=== PATIENT | male | born 1985 | race Caucasian/White ===

== ENCOUNTER 2017-08-06 21:37 | Emergency (ER) | payer OTHER, SELFPAY ==
[2017-08-06] MEDS ORDERED: HYDROcodone/Acetaminophen 10/325 mg Tablet ONE (21:54)
--- NOTE | 2017-08-06 22:02 | RAD ---
RIGHT ANKLE THREE VIEW 08/06/17 HISTORY: Stepped off a stair and twisted right ankle. COMPARISON: Left foot radiograph 2016. FINDINGS: There is extensive circumferential soft tissue edema of the ankle. Ankle mortise is congruent. No ac jasmina fracture. 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 IMPRESSION: No acute fracture or malalignment of the ankle. POS: [facility]
== END 2017-08-06 22:20 | disposition home or self-care (01) ==
LOC: ERS 21:37
DX: S93.401A Sprain of unspecified ligament of right ankle, initial encounter (principal); E66.9 Obesity, unspecified; F17.210 Nicotine dependence, cigarettes, uncomplicated; I45.6 Pre-excitation syndrome; I49.9 Cardiac arrhythmia, unspecified; X50.1XXA Overexertion from prolonged static or awkward postures, initial encounter
CPT/HCPCS: 99406

== ENCOUNTER 2017-12-18 03:47 | Emergency (ER) | payer OTHER, SELFPAY ==
[2017-12-18 04:26] LABS: #Basophils 0.1 thou/uL (0.0-0.2); #Eosinphils 0.4 thou/uL (0.0-0.7); #Lymphocytes 2.2 thou/uL (1.20-3.40); #Monocytes 0.5 thou/uL (0.11-0.59); #Neutrophils 4.4 thou/uL (1.40-6.50); %Basophils 0.7 % (0.0-1.0); %Eosinophils 5.1 % (0.0-10.0); %Lymphocytes 29.1 % (21.0-51.0); %Monocytes 6.1 % (0.0-10.0); Hemoglobin 16.3 g/dL (14.0-18.0); Mean Corpuscular HGB CONC 34.3 g/dL (32.0-36.0); Mean Corpuscular Hemoglobin 29.5 pg (27.0-31.0); Mean Platelet Volume 7.6 fL (7.4-10.4); Platelet Count 209 thou/uL (130-400); Red Blood Cell (RBC) Count 5.53 mill/uL (4.70-6.10); White Blood Cell (WBC) Count 7.5 thou/uL (4.8-10.8)
[2017-12-18 04:28] LABS: Bilirubin Negative (Negative); Blood, Urine Negative (Negative); Clarity CLEAR (Clear); Glucose, Urine (Dipstick) Negative (Negative); Leukocyte Negative (Negative); Nitrite Negative (Negative); Protein, Urine (Dipstick) Trace mg/dL (Neg-Trace); Specific Gravity, Urine 1.028 (1.002-1.036); Urobilinogen 0.2 mg/dL (0.2-1.0)
[2017-12-18 04:54] LABS: ALT (SGPT) 19 U/L (8-55); AST (SGOT) 27 U/L (5-34); Alkaline Phosphatase 62 U/L (40-150); Anion Gap 11 mmol/L (10-20); BUN (Urea Nitrogen) 13 mg/dL (8.9-20.6); Bilirubin, Total 0.9 mg/dL (0.2-1.2); Calc. Creatinine Clearance 0 mL/min (70-130); Calcium 9.1 mg/dL (7.8-10.44); Carbon Dioxide 29 mmol/L (22-29); Chloride 105 mmol/L (98-107); Estimated GFR-MDRD 72; Globulin 2.9 g/dL (2.4-3.5); Glucose 99 mg/dL (70-105); Potassium 4.3 mmol/L (3.5-5.1); Protein, Total 6.9 g/dL (6.0-8.3); Sodium 141 mmol/L (136-145)
[2017-12-18] MEDS ORDERED: Diazepam 5 MG TAB ONE ×2 (06:47→07:10)
[2017-12-18] MEDS ORDERED: Ketorolac Tromethamine 60 MG/2 ML VIAL ONE (06:47)
== END 2017-12-18 07:51 | disposition home or self-care (01) ==
LOC: ERS 03:47
DX: M62.830 Muscle spasm of back (principal); E66.9 Obesity, unspecified; F17.210 Nicotine dependence, cigarettes, uncomplicated; Z71.6 Tobacco abuse counseling
CPT/HCPCS: 36415; 80053; 81003; 85025; 96372; 99406; J1885

== ENCOUNTER 2018-02-26 02:28 | Observation (INO) | payer OTHER, SELFPAY ==
[2018-02-26 03:41] LABS: #Basophils 0.1 thou/uL (0.0-0.2); #Eosinphils 0.3 thou/uL (0.0-0.7); #Lymphocytes 1.8 thou/uL (1.20-3.40); #Monocytes 0.5 thou/uL (0.11-0.59); #Neutrophils 4.2 thou/uL (1.40-6.50); %Basophils 1.2 % (0.0-1.0); %Lymphocytes 25.9 % (21.0-51.0); %Monocytes 7.3 % (0.0-10.0); %Neutrophils 60.6 % (42.0-75.0); Hemoglobin 16.2 g/dL (14.0-18.0); Mean Corpuscular HGB CONC 35.1 g/dL (32.0-36.0); Mean Corpuscular Hemoglobin 30.3 pg (27.0-31.0); Mean Corpuscular Volume 86.5 fl (80.0-94.0); Mean Platelet Volume 7.8 fL (7.4-10.4); Platelet Count 207 thou/uL (130-400); Red Blood Cell (RBC) Count 5.32 mill/uL (4.70-6.10)
[2018-02-26 03:49] LABS: ALT (SGPT) 21 U/L (8-55); AST (SGOT) 26 U/L (5-34); Albumin 3.9 g/dL (3.5-5.0); Alkaline Phosphatase 68 U/L (40-150); Anion Gap 12 mmol/L (10-20); BUN (Urea Nitrogen) 13 mg/dL (8.9-20.6); Bilirubin, Total 1.1 mg/dL (0.2-1.2); CK (CPK) 466 U/L (30-200); Calc. Creatinine Clearance 0 mL/min (70-130); Calcium 8.9 mg/dL (7.8-10.44); Carbon Dioxide 21 mmol/L (22-29); Chloride 106 mmol/L (98-107); Estimated GFR-MDRD Greater than 90; Glucose 130 mg/dL (70-105); Lipase 34 U/L (8-78); Potassium 3.7 mmol/L (3.5-5.1); Protein, Total 6.9 g/dL (6.0-8.3); Sodium 135 mmol/L (136-145)
[2018-02-26 03:52] LABS: CKMB 3.3 ng/mL (0-6.6); Troponin I Less than 0.010 ng/mL (< 0.028)
[2018-02-26] MEDS ORDERED: Nitroglycerin 2% Ointment 1 INCH/1 GM Packet ONE (04:15)
[2018-02-26] MEDS ORDERED: cloNIDine 0.1 MG TAB ONE (05:16)
[2018-02-26 05:20] LABS: Bilirubin Negative (Negative); Blood, Urine Negative (Negative); Clarity CLEAR (Clear); Glucose, Urine (Dipstick) Negative (Negative); Leukocyte Negative (Negative); Nitrite Negative (Negative); Protein, Urine (Dipstick) Trace mg/dL (Neg-Trace); Specific Gravity, Urine 1.026 (1.002-1.036); Urobilinogen 0.2 mg/dL (0.2-1.0); pH, Urine 5.5 (5.0-9.0)
[2018-02-26 05:27] LABS: Amphetamine Not Detected (NotDetected); Barbiturates Screen Not Detected (NotDetected); Benzodiazepine Screen Not Detected (NotDetected); Cocaine Metabolite Screen Not Detected (NotDetected); Medtox Control Line Valid? VALID (VALID); Medtox Reader # READER 4; Methadone Not Detected (NotDetected); Methamphetamine Not Detected (NotDetected); Opiate Screen Not Detected (NotDetected); Oxycodone Screen Not Detected (NotDetected); Phencyclidine (PCP) Not Detected (NotDetected); THC/Cannabinoid Screen Not Detected (NotDetected); Tricyclic Screen Not Detected (NotDetected)
[2018-02-26] MEDS ORDERED: Ondansetron ODT 4 MG TAB SL PRN (06:24)
[2018-02-26] MEDS ORDERED: Acetaminophen 325 MG TAB PO PRN (06:24)
[2018-02-26] MEDS ORDERED: Ondansetron HCl/PF 4 MG/2 ML Vial IVP PRN (06:24)
[2018-02-26] MEDS ORDERED: hydrALAZINE 20 MG/ML VIAL SLOW IVP PRN (06:37)
[2018-02-26 07:07] LABS: Troponin I Less than 0.010 ng/mL (< 0.028)
[2018-02-26 08:28] VITALS: BMI 60.5
--- NOTE | 2018-02-26 08:45 | RAD ---
CHEST 2 VIEWS: History Pain. COMPARISON: 08/15/14. FINDINGS: Normal cardiac silhouette. Lungs and pleural spaces are clear. No pneumothorax or osseous abnormali ties. IMPRESSION: No acute cardiopulmonary process. POS: [facility]
[2018-02-26 10:03] LABS: Troponin I Less than 0.010 ng/mL (< 0.028)
[2018-02-26 10:55] VITALS: TEMP 96.8
[2018-02-26 13:32] VITALS: BP 165/68
--- NOTE | 2018-02-26 21:08 | HP ---
DATE OF ADMISSION: 02/26/2018 PRIMARY CARE PHYSICIAN: Taya orellana. CHIEF COMPLAINT: Chest pain. HISTORY OF PRESENT ILLNESS: This is a 32-year-old male who presents to [facility] complaining of acute onset of chest pain with left arm heaviness which began approxima tely 1:30 a.m. on 02/26/2018. The patient was apparently getting ready to go to bed when he noticed symptoms and became concerned as he states his mother had a myocardial infarction at age 51. The pat ient also states he has a history of Vhliu-Zapywzmmf-Kxcjw syndrome, status post ablation remotely. The patient denies any recent trauma, injury, fever, chills or increased cough. The patient denied a ny unilateral weakness. The patient denies any personal history of coronary artery disease or prior evaluation for the condition. The patient initially states he had a dull pain and tightness in his c hest rating at 4/10. The patient had some nausea and shortness of breath. The patient attempted to lay down, but his symptoms progressed, prompting him to seek medical attention in the emergency room. The patient underwent general evaluation including EKG evaluation showing no acute EKG changes. Ch est imaging was unremarkable and troponin I was negative initially. The patient was noted, however, with elevated blood pressure of 229/137, receiving sublingual nitroglycerin, transdermal nitroglyceri n and aspirin 324 mg x1 dose. The patient also received clonidine. The patient was referred to the observation unit for evaluation. PAST MEDICAL HISTORY: 1. Morbid obesity. 2. Rbsph-Bmdstpkzp-Npipc, status post cardiac ablation. 3. Tobacco use. PAST SURGICAL HISTORY: 1. Status post tonsillectomy. 2. Status post cardiac ablation. 3. Status post bilateral tympanostomy. CURRENT MEDICATIONS: Flexeril 10 mg p.o. q.8 hours p.r.n., [id number] Tylenol. ALLERGIES: No known drug allergies. FAMILY HISTORY: Mother with myocardial infarction at age 51. SOCIAL HISTORY: The patient is accompanied by his significant other in the hospital. Works at [employer]. Smokes up to a pack of cigarettes daily. Social alcohol use. No illicit drug use. Fun ctional of all activities of daily living. REVIEW OF SYSTEMS: The following complete review of systems was negative, unless otherwise mentioned in the HPI or below: Constitutional: Weight loss or gain, ability to conduct usual activities. Sk in: Rash, itching. Eyes: Double vision, pain. ENT/Mouth: Nose bleeding, neck stiffness, pain, te nderness. Cardiovascular: Palpitations, dyspnea on exertion, orthopnea. Respiratory: Shortness of breath, wheezing, cough, hemoptysis, fever or night sweats. Gastrointestinal: Poor appetite, abdom inal pain, heartburn, nausea, vomiting, constipation, or diarrhea. Genitourinary: Urgency, frequenc y, dysuria, nocturia. Musculoskeletal: Pain, swelling. Neurologic/Psychiatric: Anxiety, depressio n. Allergy/Immunologic: Skin rash, bleeding tendency. PHYSICAL EXAMINATION: VITAL SIGNS: Currently, blood pressure 177/98, pulse 66, respiratory rate 18, temperature 96.8 degre es Fahrenheit, O2 saturation 96% on room air. GENERAL APPEARANCE: This is a 32-year-old male, alert and oriented x3, pleasant, conversan t, in no acute distress. HEENT: Pupils are equal, round, and reactive to light and accommodation. Extraocular muscles are in tact. No scleral icterus, no conjunctival injection. Nares patent. OP is clear. NECK: Supple, no cervical adenopathy, no thyromegaly, no carotid bruits, no JVD appreciated. Cervic al spine with full active and passive range of motion. No meningeal signs appreciated. CHEST: Lungs are clear to auscultation bilaterally. Diminished breath sounds in the bases. CARDIOVASCULAR: S1, S2 with distant heart sounds. No murmur, rub or gallop. ABDOMEN: Obese, landmarks difficult to palpate due to patient's body habitus. No rebound or guardin g appreciated. EXTREMITIES: Warm and dry with fair turgor. No clubbing, cyanosis or asymmetric edema appreciated. Pulses palpable distally at the dorsalis pedis, posterior tibial, and popliteal arteries bilaterally . Capillary refill less than 2 seconds. NEUROLOGIC: Cranial nerves II-XII are grossly intact. No focal or lateralizing signs appreciated. PERTINENT LABORATORY AND X-RAY FINDINGS: Basic metabolic profile within normal limits. Total CK 466 , troponin I negative x3. Albumin 3.9, lipase 34. CBC within normal limits. Urinalysis negative. Urine drug screen on 02/26/2018 negative. Portable chest x-ray dated 02/26/2018 showed no acute card iopulmonary process. EKG dated 02/26/2018 by my interpretation shows sinus mechanism with heart rate s in the 70s. Normal R-wave progression noted in precordial leads, left axis deviation. No acute ST -T wave changes appreciated. ASSESSMENT AND PLAN: 1. Hypertensive urgency. The patient treated initially with transdermal and sublingual nitroglyceri n with overall improvement in blood pressure trend. We will initiate Norvasc 5 mg p.o. daily. The p atient likely will need additional titration of antihypertensive regimen on an ongoing basis after adelfo ngo. 2. Morbid obesity. 3. Heart healthy diet. Encourage weight loss. May need dietitian consult on an outpatient basis. 4. Tobacco abuse. We will offer smoking cessation resources prior to discharge. 5. Chest pain secondary to #1, resolved. Suspect underlying chest pain symptomatology is due to hyp ertensive urgency. The patient may benefit from outpatient cardiac stress testing. 6. Prophylaxis. Smoking cessation resources. Sequential compression devices. 7. Code status is FULL. Surrogate medical decision maker is patient's significant other.
--- NOTE | 2018-02-27 00:47 | DIS ---
DATE OF ADMISSION: 02/26/2018 DISCHARGE DIAGNOSES: 1. Hypertensive urgency, resolved. 2. Morbid obesity. 3. Tobacco abuse. 4. Chest pain secondary to #1, resolved. CONSULTATIONS: None. PERTINENT LABORATORY AND X-RAY FINDINGS: Complete metabolic profile within normal limits. Troponin I negative x3. CBC within normal limits. Urinalysis negative. Urine drug screen dated 02/26/2018 n egative. Portable chest x-ray dated 02/26/2018 negative. HOSPITAL COURSE: Patient was observed after presenting with the chest pain and hypertensive urgency. Patient was treated with transdermal and oral nitroglycerin as well as clonidine. Patient's overal l blood pressure trend improved with supportive measures. Patient was initiated on Norvasc 5 mg melissa y with plans to continue titrating and monitoring on an outpatient basis after establishing with prim [place] care provider. Patient was cautioned and counseled regarding smoking cessation and need for weig ht loss after discharge. Patient may benefit from a cardiac stress testing in the near future after stabilization of hypertension. Overall, patient remained clinically stable throughout the hospital c ourse. I have examined the patient and discussed findings and discharge planning, at which point, renea pierce verbalizes understanding and agreement. Patient ready for discharge 02/26/2018. DISCHARGE MEDICATIONS: Norvasc 5 mg 1 tablet p.o. daily. FOLLOWUP: Patient may followup with the primary care provider of his choice within 7 days of dischar ge. CONDITION ON DISCHARGE: Stable. ACTIVITY: Ad allie. DIET: Heart healthy. CODE STATUS: FULL. DISPOSITION: Home, 02/26/2018.
--- NOTE | 2018-02-27 14:15 | EKG ---
Test Reason : Blood Pressure : / mmHG Vent. Rate : 074 BPM Atrial Rate : 074 BPM P-R Int : 176 ms QRS Dur : 104 ms QT Int : 434 ms P-R-T Axes : 042 -14 024 degrees QTc Int : 481 ms Normal sinus rhythm Possible Left atrial enlargement Left ventricular hypertrophy Prolonged QT Abnormal ECG Confirmed by ANA GRECO ([id number]), editor newspaper JAIDA DELGADILLO ([id number]) on 02/27/2018 2:15:35 PM Referred By: Confirmed By:ANA GRECO
== END 2018-02-26 15:34 | disposition home or self-care (01) ==
LOC: ERS 02:28 → 2SW 06:00
PROVIDERS: ADMIT Internal Medicine; ATTEND Internal Medicine
DX: I16.0 Hypertensive urgency (principal); E66.01 Morbid (severe) obesity due to excess calories; F17.210 Nicotine dependence, cigarettes, uncomplicated; Z79.899 Other long term (current) drug therapy; Z68.44 Body mass index [BMI] 60.0-69.9, adult
CPT/HCPCS: 36415; 71046; 80053; 80306; 81003; 82553; 83690; 84484; 85025; 93005; 96374; 99406; A4216; G0378; J0360

== ENCOUNTER 2018-09-26 17:40 | Emergency (ER) | payer OTHER ==
[2018-09-26 18:36] LABS: Anion Gap 14 mmol/L (10-20); BUN (Urea Nitrogen) 9 mg/dL (8.9-20.6); Calc. Creatinine Clearance 0 mL/min (70-130); Calcium 8.8 mg/dL (7.8-10.44); Carbon Dioxide 22 mmol/L (22-29); Chloride 107 mmol/L (98-107); Estimated GFR-MDRD 87; Glucose 126 mg/dL (70-105); Potassium 3.7 mmol/L (3.5-5.1); Sodium 139 mmol/L (136-145)
[2018-09-26] MEDS ORDERED: diphenhydrAMINE 50 MG/ML VIAL ONE (18:54)
[2018-09-26] MEDS ORDERED: Acetaminophen 500 MG TAB ONE (18:54)
[2018-09-26] MEDS ORDERED: Metoclopramide HCl 10 MG/2 ML VIAL ONE (18:54)
== END 2018-09-26 20:00 | disposition home or self-care (01) ==
LOC: ERS 17:40
DX: I10 Essential (primary) hypertension (principal); R51 Headache; I45.6 Pre-excitation syndrome; E66.9 Obesity, unspecified; F17.210 Nicotine dependence, cigarettes, uncomplicated; I49.9 Cardiac arrhythmia, unspecified; Z79.899 Other long term (current) drug therapy
CPT/HCPCS: 36415; 80048; 96365; 96375; J1200; J2765

== ENCOUNTER 2018-11-23 13:42 | Emergency (ER) | payer OTHER, SELFPAY ==
[2018-11-23 14:58] LABS: #Eosinphils 0.1 thou/uL (0.0-0.7); #Monocytes 0.4 thou/uL (0.11-0.59); #Neutrophils 5.4 thou/uL (1.40-6.50); %Basophils 0.4 % (0.0-1.0); %Eosinophils 0.8 % (0.0-10.0); %Monocytes 5.4 % (0.0-10.0); %Neutrophils 78.4 % (42.0-75.0); Hemoglobin 17.7 g/dL (14.0-18.0); Mean Corpuscular HGB CONC 33.4 g/dL (32.0-36.0); Mean Corpuscular Hemoglobin 29.9 pg (27.0-31.0); Mean Corpuscular Volume 89.6 fL (78.0-98.0); Platelet Count 235 thou/uL (130-400); RBC Distribution Width 11.8 % (11.5-14.5); Red Blood Cell (RBC) Count 5.93 mill/uL (4.70-6.10); White Blood Cell (WBC) Count 6.9 thou/uL (4.8-10.8)
--- NOTE | 2018-11-23 15:04 | RAD ---
SINGLE VIEW CHEST: Date: 11/23/18 COMPARISON: 08/15/14. HISTORY: Syncope and dizziness. FINDINGS: Single view of the chest shows a normal sized cardiomediastinal silhouette. There is no evidence of c onsolidation, mass, or pleural effusion. The bones are unremarkable. IMPRESSION: No evidence of acute cardiopulmonary disease. POS: [facility]
[2018-11-23 15:21] LABS: ALT (SGPT) 37 U/L (8-55); AST (SGOT) 57 U/L (5-34); Albumin 4.3 g/dL (3.5-5.0); Alkaline Phosphatase 61 U/L (40-150); Anion Gap 15 mmol/L (10-20); BUN (Urea Nitrogen) 10 mg/dL (8.9-20.6); Bilirubin, Total 1.8 mg/dL (0.2-1.2); Calc. Creatinine Clearance 0 mL/min (70-130); Calcium 9.6 mg/dL (7.8-10.44); Carbon Dioxide 24 mmol/L (22-29); Chloride 104 mmol/L (98-107); Estimated GFR-MDRD 81; Globulin 3.2 g/dL (2.4-3.5); Glucose 93 mg/dL (70-105); Magnesium 2.2 mg/dL (1.6-2.6); Potassium 4.3 mmol/L (3.5-5.1); Protein, Total 7.5 g/dL (6.0-8.3); Sodium 139 mmol/L (136-145)
== END 2018-11-23 16:11 | disposition home or self-care (01) ==
LOC: ERS 13:42
DX: R55 Syncope and collapse (principal); I10 Essential (primary) hypertension; I45.6 Pre-excitation syndrome; I49.9 Cardiac arrhythmia, unspecified; F17.210 Nicotine dependence, cigarettes, uncomplicated; Z79.899 Other long term (current) drug therapy
CPT/HCPCS: 71045; 80053; 83735; 84443; 84484; 85025; 85379; 93005

== ENCOUNTER 2020-03-11 00:42 | Emergency (ER) | payer OTHER, SELFPAY | END 2020-03-11 02:02 | disposition home or self-care (01) | LOC: ERS 00:42 | DX: L03.115 Cellulitis of right lower limb (principal); I10 Essential (primary) hypertension; E66.9 Obesity, unspecified; F17.210 Nicotine dependence, cigarettes, uncomplicated; I49.9 Cardiac arrhythmia, unspecified; I45.6 Pre-excitation syndrome; Z79.899 Other long term (current) drug therapy | CPT/HCPCS: 99283 ==

== ENCOUNTER 2020-11-21 16:22 | Inpatient (IN) | payer SELFPAY ==
[2020-11-21] MEDS ORDERED: Acetaminophen 500 MG TAB ONE (16:53)
[2020-11-21] MEDS ORDERED: Cefepime 2 GM VIAL ONE (17:05)
[2020-11-21 17:16] LABS: Hemoglobin 15.9 g/dL (14.0-18.0); Mean Corpuscular HGB CONC 34.1 g/dL (32.0-36.0); Mean Corpuscular Hemoglobin 29.6 pg (27.0-31.0); Mean Corpuscular Volume 86.7 fL (78.0-98.0); Mean Platelet Volume 8.3 fL (7.4-10.4); Platelet Count 169 thou/uL (130-400); RBC Distribution Width 12.2 % (11.5-14.5); Red Blood Cell (RBC) Count 5.36 mill/uL (4.70-6.10); White Blood Cell (WBC) Count 16.2 thou/uL (4.8-10.8)
[2020-11-21] MEDS ORDERED: hydrALAZINE 20 MG/ML VIAL ONE (17:26)
[2020-11-21 17:35] LABS: Band 13 % (5-11); Lymphocytes 4 % (21-51); MDiff Complete? YES; Monocytes 3 % (0-10); Neutrophil 79 % (42-75); Platelet Morphology Comment Appears Adequate; RBC Morphology Normal; Reactive Lymphocytes 1 % (0-10)
[2020-11-21 17:45] LABS: Bacteria/HPF None Seen HPF (None Seen); Bilirubin Negative (Negative); Blood, Urine 2+ (Negative); Clarity Clear (Clear); Glucose, Urine (Dipstick) Normal (Negative); Ketone, Urine Negative (Negative); Leukocyte 25 Leu/uL (Negative); Nitrite Negative (Negative); Protein, Urine (Dipstick) 100 mg/dL (Neg-Trace); Specific Gravity, Urine 1.023 (1.002-1.036); Squamous Epithelial None Seen HPF (0-3)
[2020-11-21 17:46] LABS: ALT (SGPT) 23 U/L (8-55); AST (SGOT) 29 U/L (5-34); Albumin 3.8 g/dL (3.5-5.0); Alkaline Phosphatase 63 U/L (40-110); Anion Gap 12 mmol/L (10-20); BUN (Urea Nitrogen) 11 mg/dL (8.9-20.6); Bilirubin, Total 1.9 mg/dL (0.2-1.2); Calc. Creatinine Clearance 220 mL/min (70-130); Calcium 8.6 mg/dL (7.8-10.44); Carbon Dioxide 24 mmol/L (22-29); Chloride 102 mmol/L (98-107); Globulin 3.3 g/dL (2.4-3.5); Glucose 111 mg/dL (70-105); Potassium 3.7 mmol/L (3.5-5.1); Protein, Total 7.1 g/dL (6.0-8.3); Sodium 134 mmol/L (136-145)
[2020-11-21] MEDS ORDERED: Acetaminophen 325 MG TAB PO PRN (20:26)
--- NOTE | 2020-11-21 20:36 | PDOC.HHP ---
Hospitalist HPI Left leg pain History of Present Illness: This is a 35-year-old male patient with a history of morbid obesity, WPW status post ablation, and hypertension who presented for days history of swelling and redness of his left leg. He notes that he has had cellulitis of his left leg several times and it felt the same way. With worsening pain and fever he presented to the ED for further evaluation. He denied any associated nausea anorexia vomiting diarrhea dysuria or frequency. At presentation blood pressure was 225/117, pulse 104, temperature 98.6 and saturating 98% on room air. His labs showed leukocytosis of 16.2, sodium was 134 lactate 1.79 bilirubin 1.9. He was started on vancomycin cefepime and received 1 L normal saline. Got 1 g of Tylenol as well. Hospitalist team was then called for admission. Allergies/Adverse Reactions: Allergy/AdvReac Type Severity Reaction Status Date / Time No Known Allergies Allergy Verified 12/22/19 23:01 Home Medications: Medication Instructions Recorded Confirmed Type Amlodipine [Norvasc] 5 mg PO DAILY #30 tab 02/26/18 Rx Past History: PMHx: Cellulitis, WPW, hypertension PSHx: None of significance FHx: None of significance Social: No smoking history, occasional alcohol use. No illicit drug use. Hospitalist HPI ROS Constitutional: reports: malaise. denies: fever, chills, sweats, weakness Cardiovascular: denies: chest pain, palpitations, orthopnea, paroxysmal noc. dyspnea Gastrointestinal: denies: nausea, vomiting, abdominal pain, diarrhea, constipation Genitourinary: denies: dysuria, frequency, incontinence, hematuria Neurological: denies: numbness, incoordination, change in speech All other systems reviewed; all pertinent +/- noted in HPI/Subj Hospitalist Exam Vitals: Weight Weight 425 lb 0.114 oz General Appearance: awake alert General - other findings: Morbidly obese, in no acute distress Eye: PERRL, anicteric sclera ENT: normocephalic atraumatic Neck: supple Heart: RRR, no murmur, no gallops, no rubs, normal peripheral pulses Respiratory: CTAB, no wheezes, no rales, no ronchi, normal chest expansion Gastrointestinal: soft, non-tender, non-distended, normal bowel sounds, no palpable masses, no rigidity Extremities: no cyanosis, no clubbing, no edema Extremities - other findings: Swelling and extensive erythema circumferentially of left leg. Neurological: cranial nerve grossly intact, no weakness, no focal deficits Hospitalist Results Result Diagrams: 11/21/20 16:58 11/21/20 16:58 Lab results: Laboratory Last Values WBC 16.2 thou/uL (4.8-10.8) H 11/21/20 16:58 RBC 5.36 mill/uL (4.70-6.10) 11/21/20 16:58 Hgb 15.9 g/dL (14.0-18.0) 11/21/20 16:58 Hct 46.4 % (42.0-52.0) 11/21/20 16:58 MCV 86.7 fL (78.0-98.0) 11/21/20 16:58 MCH 29.6 pg (27.0-31.0) 11/21/20 16:58 MCHC 34.1 g/dL (32.0-36.0) 11/21/20 16:58 RDW 12.2 % (11.5-14.5) 11/21/20 16:58 Plt Count 169 thou/uL (130-400) 11/21/20 16:58 MPV 8.3 fL (7.4-10.4) 11/21/20 16:58 Neutrophils % (Manual) 79 % (42-75) H 11/21/20 16:58 Band Neuts % (Manual) 13 % (5-11) H 11/21/20 16:58 Lymphocytes % (Manual) 4 % (21-51) L 11/21/20 16:58 Reactive Lymphs % 1 % (0-10) 11/21/20 16:58 Monocytes % (Manual) 3 % (0-10) 11/21/20 16:58 Lymphocytes # Not Reportable 11/21/20 16:58 Plt Morphology Comment Appears Adequate 11/21/20 16:58 RBC Morph Comment Normal 11/21/20 16:58 Sodium 134 mmol/L (136-145) L 11/21/20 16:58 Potassium 3.7 mmol/L (3.5-5.1) 11/21/20 16:58 Chloride 102 mmol/L (98-107) 11/21/20 16:58 Carbon Dioxide 24 mmol/L (22-29) 11/21/20 16:58 Anion Gap 12 mmol/L (10-20) 11/21/20 16:58 BUN 11 mg/dL (8.9-20.6) 11/21/20 16:58 Creatinine 1.29 mg/dL (0.7-1.3) 11/21/20 16:58 Estimated GFR (MDRD) 64 11/21/20 16:58 Glucose 111 mg/dL (70-105) H 11/21/20 16:58 Lactic Acid 1.7 mmol/L (0.5-2.2) 11/21/20 16:58 Calcium 8.6 mg/dL (7.8-10.44) 11/21/20 16:58 Total Bilirubin 1.9 mg/dL (0.2-1.2) H 11/21/20 16:58 AST 29 U/L (5-34) 11/21/20 16:58 ALT 23 U/L (8-55) 11/21/20 16:58 Alkaline Phosphatase 63 U/L (40-110) 11/21/20 16:58 Serum Total Protein 7.1 g/dL (6.0-8.3) 11/21/20 16:58 Albumin 3.8 g/dL (3.5-5.0) 11/21/20 16:58 Globulin 3.3 g/dL (2.4-3.5) 11/21/20 16:58 Albumin/Globulin Ratio 1.2 g/dL (1.2-2.2) 11/21/20 16:58 Urine Color Yellow (Yellow) 11/21/20 17:19 Urine Clarity Clear (Clear) 11/21/20 17:19 Urine pH 6.0 (5.0-9.0) 11/21/20 17:19 Ur Specific [place] 1.023 (1.002-1.036) 11/21/20 17:19 Urine Protein 100 mg/dL (Neg-Trace) A 11/21/20 17:19 Urine Glucose (UA) Normal mg/dL (Negative) 11/21/20 17:19 Urine Ketones Negative mg/dL (Negative) 11/21/20 17:19 Urine Blood 2+ (Negative) A 11/21/20 17:19 Urine Nitrite Negative (Negative) 11/21/20 17:19 Urine Bilirubin Negative (Negative) 11/21/20 17:19 Urine Urobilinogen 2.0 mg/dL (Less than 2) A 11/21/20 17:19 Ur Leukocyte Esterase 25 Jil/uL (Negative) A 11/21/20 17:19 Urine RBC 11-20 HPF (0-3) A 11/21/20 17:19 Urine WBC 4-6 HPF (0-3) A 11/21/20 17:19 Ur Squamous Epith Cells None Seen HPF (0-3) 11/21/20 17:19 Urine Bacteria None Seen HPF (None Seen) 11/21/20 17:19 Hospitalist H&P A/P Plan: This is a 35-year-old male patient with a history of hypertension and cellulitis with morbid obesity presenting with recurrent cellulitis of his left lower leg. Left lower leg cellulitis This is apparently recurrent This is nonpurulent cellulitis Received vancomycin and cefepime Continue antibiotic therapy on ceftriaxone for now Blood cultures drawnwe will follow Keep lower leg elevated Pain relief as needed. Mild sepsis Patient has leukocytosis and tachycardia resolved pain is cellulitis. Received 1 L we will continue on maintenance fluids. Follow-up cultures Lactate not elevated. Hypertensive urgency Initial systolic blood pressure above 200 We will start. Hydralazine/labetalol Resume home antihypertensive medications. Hyponatremia This is mild at 134 We will monitor BMP Morbid obesity History of WPW status post ablation VT prophylaxisLovenox CODE STATUSfull code
[2020-11-21] MEDS ORDERED: hydrALAZINE 20 MG/ML VIAL SLOW IVP PRN (23:57)
[2020-11-22] MEDS ORDERED: Amlodipine 10 MG TAB PO SCH ×2 (00:15→08:30)
[2020-11-22] MEDS ORDERED: Acetaminophen 325 MG TAB ONE (01:50)
[2020-11-22] MEDS: cefTRIAXone\\ROCEPHIN 1 GM in Sodium Chloride 0.9% 100 ML IVPB SCH ×2 (04:20→20:51)
[2020-11-22] MEDS: Sodium Chloride 0.9% 1,000 ML IV SCH ×3 (04:20→19:21)
[2020-11-22 04:45] LABS: #Lymphocytes 1.1 thou/uL (1.20-3.40); #Monocytes 0.9 thou/uL (0.11-0.59); #Neutrophils 9.2 thou/uL (1.40-6.50); %Basophils 0.3 % (0.0-1.0); %Eosinophils 0.2 % (0.0-10.0); %Lymphocytes 9.9 % (21.0-51.0); %Neutrophils 81.6 % (42.0-75.0); Mean Corpuscular HGB CONC 32.6 g/dL (32.0-36.0); Mean Corpuscular Hemoglobin 28.2 pg (27.0-31.0); Mean Corpuscular Volume 86.5 fL (78.0-98.0); Mean Platelet Volume 8.1 fL (7.4-10.4); Platelet Count 155 thou/uL (130-400); RBC Distribution Width 12.4 % (11.5-14.5); White Blood Cell (WBC) Count 11.3 thou/uL (4.8-10.8)
[2020-11-22 05:05] LABS: Anion Gap 13 mmol/L (10-20); BUN (Urea Nitrogen) 13 mg/dL (8.9-20.6); Calc. Creatinine Clearance 253 mL/min (70-130); Calcium 8.5 mg/dL (7.8-10.44); Carbon Dioxide 23 mmol/L (22-29); Chloride 103 mmol/L (98-107); Glucose 115 mg/dL (70-105); Potassium 3.5 mmol/L (3.5-5.1); Sodium 135 mmol/L (136-145)
[2020-11-22] MEDS ORDERED: hydrALAZINE 20 MG/ML VIAL SLOW IVP SCH (05:30)
[2020-11-22] MEDS: Losartan 25 MG TAB PO SCH (08:41)
[2020-11-22] MEDS: Amlodipine 10 MG TAB PO SCH (08:42)
[2020-11-22] MEDS: Enoxaparin Sodium 40 MG/0.4 ML SYRINGE SC SCH (08:42)
[2020-11-22] MEDS ORDERED: Non-Formulary Item 1 EACH (Losartan Potassium [Cozaar] 100 MG Tablet) PO SCH (09:00)
[2020-11-22 09:57] LABS: SARS-CoV-2 PCR by NAA Not Detected (NotDetected)
--- NOTE | 2020-11-22 12:48 | PDOC.HOSPP ---
- Subjective Encounter Date: 11/22/20 Encounter Time: 09:45 Subjective: Patient has no acute complaints. His blood pressure is quite elevated. Still has mild leukocytosis.Covid negative. - Objective Vital Signs & Weight: Vital Signs (12 hours) Temp Pulse Resp BP BP Pulse Ox 11/22/20 11:57 97.5 F L 90 20 189/97 H 98 11/22/20 08:29 98.8 F 90 20 206/109 H 98 11/22/20 06:00 105 H 11/22/20 04:40 182/84 H 11/22/20 03:30 98.5 F 105 H 18 180/80 H 96 Weight Weight 425 lb 0.114 oz Result Diagrams: 11/22/20 04:22 11/22/20 04:22 Hospitalist ROS - Medication Medications: Active Medications Generic Name Dose Route Start Last Admin Trade Name Freq PRN Reason Stop Dose Admin Acetaminophen 650 mg 11/21/20 20:26 11/22/20 08:32 Acetaminophen 325 Mg Tab PO 650 mg Q4H PRN Administration Headache/Fever/Mild Pain (1-3) Amlodipine Besylate 10 mg 11/22/20 09:00 11/22/20 08:42 Amlodipine 10 Mg Tab PO 10 mg DAILY MARYA Administration Enoxaparin Sodium 40 mg 11/22/20 09:00 11/22/20 08:42 Enoxaparin Sodium 40 Mg/0.4 Ml Syringe SC 40 mg 0900 MARYA Administration Ceftriaxone Sodium 1 gm/ 100 mls @ 200 mls/hr 11/21/20 21:00 11/22/20 04:20 Sodium Chloride IVPB Not Given Q24HR MARYA Sodium Chloride 1,000 mls @ 100 mls/hr 11/21/20 20:45 11/22/20 06:01 Normal Saline 0.9% IV 1,000 mls .Q10H MARYA Administration Losartan Potassium 100 mg 11/22/20 09:00 11/22/20 08:41 Losartan 25 Mg Tab PO 100 mg DAILY MARYA Administration Sodium Chloride 10 ml 11/22/20 09:00 11/22/20 08:42 Flush - Normal Saline 10 Ml Syringe IVF 10 ml Q12HR MARYA Administration Hospitalist Exam Vitals: Vital Signs (12 hours) Temp Pulse Resp BP BP Pulse Ox 11/22/20 11:57 97.5 F L 90 20 189/97 H 98 11/22/20 08:29 98.8 F 90 20 206/109 H 98 11/22/20 06:00 105 H 11/22/20 04:40 182/84 H 11/22/20 03:30 98.5 F 105 H 18 180/80 H 96 Weight Weight 425 lb 0.114 oz General Appearance: NAD, awake alert Eye: PERRL ENT: normocephalic atraumatic Neck: supple Heart: RRR Respiratory: CTAB, normal chest expansion Gastrointestinal: soft, normal bowel sounds Extremities - other findings: Left leg cellulitis Neurological: cranial nerve grossly intact, no focal deficits Psychiatric: normal affect, A&O x 3 Hosp A/P - Plan 35-year-old male patient with a history of hypertension and cellulitis with morbid obesity presenting with recurrent cellulitis of his left lower leg. Left lower leg cellulitis -recurrent Received vancomycin and cefepime in the ER- ceftriaxone for now Keep lower leg elevated Pain relief as needed. -Blood cultures done on so far no growth. Mild sepsis Patient has leukocytosis and tachycardia resolved pain is cellulitis. Received 1 L we will continue on maintenance fluids. - -Blood cultures done on so far no growth. Hypertensive urgency Initial systolic blood pressure above 200 We will start. Hydralazine/labetalol -Patient is on losartan as home regimen.--Added Norvasc. Hyponatremia This is mild at 134 We will monitor BMP Morbid obesity -Diet and exercise ongoing encouragement History of WPW status post ablation VT prophylaxisLovenox CODE STATUSfull code His blood pressure has to be optimized. We will monitor his CBC to trend the elevated white count.
[2020-11-22] MEDS: Labetalol HCl 100 MG/20 ML VIAL SLOW IVP PRN ×2 (15:25→19:48)
[2020-11-23] MEDS: Labetalol HCl 100 MG/20 ML VIAL SLOW IVP PRN (03:40)
[2020-11-23 04:40] LABS: #Eosinphils 0.2 thou/uL (0.0-0.7); #Lymphocytes 1.4 thou/uL (1.20-3.40); #Monocytes 0.8 thou/uL (0.11-0.59); #Neutrophils 4.5 thou/uL (1.40-6.50); %Basophils 0.2 % (0.0-1.0); %Eosinophils 2.3 % (0.0-10.0); %Lymphocytes 20.7 % (21.0-51.0); %Monocytes 11.1 % (0.0-10.0); %Neutrophils 65.7 % (42.0-75.0); Hemoglobin 14.5 g/dL (14.0-18.0); Mean Corpuscular HGB CONC 33.9 g/dL (32.0-36.0); Mean Corpuscular Hemoglobin 29.5 pg (27.0-31.0); Mean Platelet Volume 8.1 fL (7.4-10.4); Platelet Count 156 thou/uL (130-400); RBC Distribution Width 12.2 % (11.5-14.5); Red Blood Cell (RBC) Count 4.93 mill/uL (4.70-6.10); White Blood Cell (WBC) Count 6.9 thou/uL (4.8-10.8)
[2020-11-23] MEDS: Amlodipine 10 MG TAB PO SCH (10:56)
[2020-11-23] MEDS: Losartan 25 MG TAB PO SCH (10:56)
[2020-11-23] MEDS: Enoxaparin Sodium 40 MG/0.4 ML SYRINGE SC SCH (10:57)
--- NOTE | 2020-11-23 11:26 | PDOC.HOSPP ---
- Subjective Encounter Date: 11/23/20 Encounter Time: 09:30 Subjective: Patient is sitting in the chair. He feels he is cellulitis on his left leg and is improving he is quite anxious to go home. He is used for this recurrent cellulitis and that he is quite familiar with with antibiotics and preferred to go home today. His blood pressure is still elevated patient states that he is compliant taking losartan but his blood pressure is always high end. I counseled him on optimizing the medications. New medication hydralazine is started and he he is getting a prescription for that. He was also used to take Bactrim and clindamycin in the past for the cellulitis. Will try doxycycline upon discharge. - Objective Vital Signs & Weight: Vital Signs (12 hours) Temp Pulse Resp BP BP Pulse Ox 11/23/20 10:56 71 159/92 H 11/23/20 10:54 98.0 F 71 20 159/92 H 97 11/23/20 05:35 176/86 H 11/23/20 03:40 78 195/96 H 11/23/20 03:30 98.9 F 83 20 195/96 H 97 11/22/20 23:53 79 173/84 H Weight Weight 425 lb 0.114 oz Result Diagrams: 11/23/20 04:15 11/22/20 04:22 Hospitalist ROS - Medication Medications: Active Medications Generic Name Dose Route Start Last Admin Trade Name Freq PRN Reason Stop Dose Admin Acetaminophen 650 mg 11/21/20 20:26 11/22/20 08:32 Acetaminophen 325 Mg Tab PO 650 mg Q4H PRN Administration Headache/Fever/Mild Pain (1-3) Amlodipine Besylate 10 mg 11/22/20 09:00 11/23/20 10:56 Amlodipine 10 Mg Tab PO 10 mg DAILY MARYA Administration Enoxaparin Sodium 40 mg 11/22/20 09:00 11/23/20 10:57 Enoxaparin Sodium 40 Mg/0.4 Ml Syringe SC 40 mg 0900 MARYA Administration Ceftriaxone Sodium 1 gm/ 100 mls @ 200 mls/hr 11/21/20 21:00 11/22/20 20:51 Sodium Chloride IVPB 100 mls Q24HR MARYA Administration Labetalol HCl 10 mg 11/21/20 23:57 11/23/20 03:40 Labetalol Hcl 100 Mg/20 Ml Vial SLOW IVP 10 mg Q4H PRN Administration SBP Greater Than 180 Losartan Potassium 100 mg 11/22/20 09:00 11/23/20 10:56 Losartan 25 Mg Tab PO 100 mg DAILY MARYA Administration Sodium Chloride 10 ml 11/22/20 09:00 11/23/20 10:57 Flush - Normal Saline 10 Ml Syringe IVF 10 ml Q12HR MARYA Administration Hospitalist Exam Vitals: Vital Signs (12 hours) Temp Pulse Resp BP BP Pulse Ox 11/23/20 10:56 71 159/92 H 11/23/20 10:54 98.0 F 71 20 159/92 H 97 11/23/20 05:35 176/86 H 11/23/20 03:40 78 195/96 H 11/23/20 03:30 98.9 F 83 20 195/96 H 97 11/22/20 23:53 79 173/84 H Weight Weight 425 lb 0.114 oz General Appearance: NAD, awake alert Eye: PERRL Heart: RRR Respiratory: CTAB Gastrointestinal: soft, normal bowel sounds Extremities - other findings: Erythema yeast resolving but still persistent but not bright red. Neurological: cranial nerve grossly intact, no focal deficits Psychiatric: normal affect, normal behavior, A&O x 3 Hosp A/P - Plan 35-year-old male patient with a history of hypertension and cellulitis with morbid obesity presenting with recurrent cellulitis of his left lower leg. Left lower leg cellulitis -recurrent Received vancomycin and cefepime in the ER- ceftriaxone for now Keep lower leg elevated Pain relief as needed. -Blood cultures done on so far no growth. Mild sepsis Patient has leukocytosis and tachycardia resolved pain is cellulitis. Received 1 L we will continue on maintenance fluids. - -Blood cultures done on so far no growth. Hypertensive urgency Initial systolic blood pressure above 200 We will start. Hydralazine/labetalol -Patient is on losartan as home regimen.--Added Norvasc. Hyponatremia This is mild at 134 We will monitor BMP Morbid obesity -Diet and exercise ongoing encouragement History of WPW status post ablation VT prophylaxisLovenox CODE STATUSfull code His blood pressure has to be optimized. We will monitor his CBC to trend the elevated white count.
--- NOTE | 2020-11-23 11:29 | PDOC.DS.DS ---
Provider Date of Admission: 11/22/20 00:00 Admitting Provider: Raimundo Garza MD Primary Care Physician: JOSE SNEED MD Course Hospital Course: 35-year-old male patient with a history of hypertension and cellulitis with morbid obesity presenting with recurrent cellulitis of his left lower leg. Left lower leg cellulitis -recurrent Received vancomycin and cefepime in the ER- ceftriaxone and transitioned to doxycycline upon discharge for 2 weeks -Blood cultures done on so far no growth. Hypertensive urgency Initial systolic blood pressure above 200 -Patient has suboptimally controlled blood pressure at home with his losartan 100 mg daily. Added hydralazine and I counseled him on blood pressure check frequently and follow with the primary care physician. He is compliant in taking his medication. Hyponatremia Improved Morbid obesity -Diet and exercise ongoing encouragement History of WPW status post ablation Clinically stable to be discharged home. Follow with the primary care physician in a week to monitor his blood pressure. New medication hydralazine started. With the ease for up titration as needed. Discharge time over 30 minutes. Lab Results: 11/23/20 04:15 11/22/20 04:22 Abnormal Lab Results - Last 48 hrs 11/21/20 16:58: WBC 16.2 H, Neutrophils % (Manual) 79 H, Band Neuts % (Manual) 1 3 H, Lymphocytes % (Manual) 4 L 11/21/20 16:58: Sodium 134 L, Total Bilirubin 1.9 H 11/21/20 17:19: Urine Protein 100 A, Urine Blood 2+ A, Urine Urobilinogen 2.0 A, Ur Leukocyte Esterase 25 A, Urine RBC 11-20 A, Urine WBC 4-6 A 11/22/20 04:22: Sodium 135 L 11/22/20 04:22: WBC 11.3 H, Neutrophils % 81.6 H, Lymphocytes % 9.9 L, Neutrophils # 9.2 H, Lymphocytes # 1.1 L, Monocytes # 0.9 H 11/23/20 04:15: Lymphocytes % 20.7 L, Monocytes % 11.1 H, Monocytes # 0.8 H Microbiology - Entire Visit 11/21/20 17:19 Urine voided Urine Culture - Preliminary 11/21/20 16:58 Venous blood - Right Arm Blood Culture - Preliminary Specimen has been received and culture in progress. No Growth to date. 11/21/20 16:58 Venous blood - Left Arm Blood Culture - Preliminary Specimen has been received and culture in progress. No Growth to date. Vitals: Vital Signs (12 hours) Temp Pulse Resp BP BP Pulse Ox 11/23/20 10:56 71 159/92 H 11/23/20 10:54 98.0 F 71 20 159/92 H 97 11/23/20 05:35 176/86 H 11/23/20 03:40 78 195/96 H 11/23/20 03:30 98.9 F 83 20 195/96 H 97 11/22/20 23:53 79 173/84 H Weight Weight 425 lb 0.114 oz Physical Exam: The patient was seen and examined on the day of discharge. Patient is sitting in the chair. He feels he is cellulitis on his left leg and is improving he is quite anxious to go home. He is used for this recurrent cellulitis and that he is quite familiar with with antibiotics and preferred to go home today. His blood pressure is still elevated patient states that he is compliant taking losartan but his blood pressure is always high end. I counseled him on optimizing the medications. New medication hydralazine is started and he he is getting a prescription for that. He was also used to take Bactrim and clindamycin in the past for the cellulitis. Will try doxycycline upon discharge. General Appearance: NAD, awake alert Cardiovascular: RRR Plan Prescriptions: hydrALAZINE [Apresoline] 25 mg PO TID 30 Days #90 tab Doxycycline [Vibramycin] 100 mg PO BID 14 Days #28 cap Home Medications: Medication Instructions Recorded Confirmed Type Losartan Potassium [Cozaar] 100 mg PO DAILY 11/22/20 11/22/20 History Doxycycline [Vibramycin] 100 mg PO BID 14 Days #28 cap 11/23/20 Rx hydrALAZINE [Apresoline] 25 mg PO TID 30 Days #90 tab 11/23/20 Rx Allergies: No Known Allergies Allergy (Verified 11/22/20 03:39) Discharge Instructions:: PCP in 1 week Activity:: Activity as Tolerated Nourishment:: Heart Healthy Diet Referrals: JOSE SNEED MD [Primary Care Provider] - Disposition: HOME Quality CORE MEASURES:: N/A
[2020-11-23] MEDS ORDERED: Doxycycline 100 MG CAP PO SCH (11:30)
[2020-11-23 11:38] VITALS: BP 173/95; TEMP 98.3
== END 2020-11-23 14:45 | disposition home or self-care (01) | DRG 872 ==
LOC: ERS 16:22 → 2NO 11-22
PROVIDERS: ADMIT Student in an Organized Health Care Education/Training Program; ATTEND Internal Medicine
DX: A41.9 Sepsis, unspecified organism (principal); L03.116 Cellulitis of left lower limb; Z68.43 Body mass index [BMI] 50.0-59.9, adult; E87.1 Hypo-osmolality and hyponatremia; I10 Essential (primary) hypertension; F17.210 Nicotine dependence, cigarettes, uncomplicated; E66.01 Morbid (severe) obesity due to excess calories; E03.9 Hypothyroidism, unspecified; Z90.89 Acquired absence of other organs; Z79.899 Other long term (current) drug therapy; Z20.822 Contact with and (suspected) exposure to COVID-19
CPT/HCPCS: 36415; 80048; 80053; 81003; 81015; 83605; 85025; 87040; 87086; 87635; 96365; 96366; 96367; 96375; J0360; J0692; J0696; J1650; J3370; J3490; J7030; U0003; U0005

== ENCOUNTER 2020-12-13 21:30 | Emergency (ER) | payer SELFPAY ==
[2020-12-13 22:14] LABS: #Eosinphils 0.3 thou/uL (0.0-0.7); #Lymphocytes 2.1 thou/uL (1.20-3.40); #Monocytes 0.5 thou/uL (0.11-0.59); #Neutrophils 3.5 thou/uL (1.40-6.50); %Basophils 0.3 % (0.0-1.0); %Eosinophils 4.4 % (0.0-10.0); %Lymphocytes 32.2 % (21.0-51.0); %Monocytes 8.4 % (0.0-10.0); %Neutrophils 54.6 % (42.0-75.0); Hemoglobin 15.9 g/dL (14.0-18.0); Mean Corpuscular HGB CONC 33.8 g/dL (32.0-36.0); Mean Corpuscular Hemoglobin 29.3 pg (27.0-31.0); Mean Corpuscular Volume 86.5 fL (78.0-98.0); Mean Platelet Volume 8.4 fL (7.4-10.4); Platelet Count 214 thou/uL (130-400); RBC Distribution Width 12.2 % (11.5-14.5); Red Blood Cell (RBC) Count 5.43 mill/uL (4.70-6.10); White Blood Cell (WBC) Count 6.4 thou/uL (4.8-10.8)
[2020-12-13 22:37] LABS: ALT (SGPT) 25 U/L (8-55); AST (SGOT) 27 U/L (5-34); Albumin 3.8 g/dL (3.5-5.0); Alkaline Phosphatase 71 U/L (40-110); Anion Gap 13 mmol/L (10-20); BUN (Urea Nitrogen) 15 mg/dL (8.9-20.6); Bilirubin, Total 0.8 mg/dL (0.2-1.2); Calc. Creatinine Clearance 0 mL/min (70-130); Calcium 8.9 mg/dL (7.8-10.44); Carbon Dioxide 27 mmol/L (22-29); Chloride 101 mmol/L (98-107); Globulin 3.2 g/dL (2.4-3.5); Glucose 117 mg/dL (70-105); Potassium 3.6 mmol/L (3.5-5.1); Sodium 137 mmol/L (136-145)
== END 2020-12-13 23:25 | disposition home or self-care (01) ==
LOC: ERS 21:30
DX: R00.2 Palpitations (principal); I10 Essential (primary) hypertension; E66.9 Obesity, unspecified; F17.210 Nicotine dependence, cigarettes, uncomplicated; Z79.899 Other long term (current) drug therapy
CPT/HCPCS: 36415; 71045; 80053; 84484; 85025; 93005

== ENCOUNTER 2021-01-13 16:18 | Inpatient (IN) | payer SELFPAY ==
[2021-01-13 16:56] LABS: Hemoglobin 16.2 g/dL (14.0-18.0); Mean Corpuscular HGB CONC 32.8 g/dL (32.0-36.0); Mean Corpuscular Hemoglobin 28.5 pg (27.0-31.0); Mean Corpuscular Volume 86.9 fL (78.0-98.0); Mean Platelet Volume 8.4 fL (7.4-10.4); Platelet Count 187 thou/uL (130-400); RBC Distribution Width 12.7 % (11.5-14.5); Red Blood Cell (RBC) Count 5.69 mill/uL (4.70-6.10); White Blood Cell (WBC) Count 20.6 thou/uL (4.8-10.8)
[2021-01-13] MEDS ORDERED: Vancomycin 1 GM/200 ML BAG ONE (17:04)
[2021-01-13] MEDS ORDERED: Cefepime 2 GM VIAL ONE (17:04)
[2021-01-13 17:12] LABS: ALT (SGPT) 19 U/L (8-55); AST (SGOT) 22 U/L (5-34); Albumin 3.8 g/dL (3.5-5.0); Alkaline Phosphatase 66 U/L (40-110); Anion Gap 14 mmol/L (10-20); BUN (Urea Nitrogen) 14 mg/dL (8.9-20.6); Bilirubin, Total 1.6 mg/dL (0.2-1.2); Calc. Creatinine Clearance 0 mL/min (70-130); Calcium 8.8 mg/dL (7.8-10.44); Carbon Dioxide 24 mmol/L (22-29); Chloride 97 mmol/L (98-107); Globulin 3.3 g/dL (2.4-3.5); Glucose 297 mg/dL (70-105); Potassium 3.4 mmol/L (3.5-5.1); Protein, Total 7.1 g/dL (6.0-8.3); Sodium 132 mmol/L (136-145)
[2021-01-13 17:16] LABS: Band 24 % (5-11); Lymphocytes 6 % (21-51); MDiff Complete? YES; Monocytes 5 % (0-10); Neutrophil 63 % (42-75); Platelet Morphology Comment Appears Adequate; RBC Morphology Normal; Reactive Lymphocytes 2 % (0-10)
[2021-01-13 18:32] LABS: Bacteria/HPF None Seen HPF (None Seen); Bilirubin Negative (Negative); Blood, Urine 2+ (Negative); Clarity Clear (Clear); Glucose, Urine (Dipstick) Greater than 1000 mg/dL (Negative); Ketone, Urine Trace mg/dL (Negative); Leukocyte Negative Leu/uL (Negative); Nitrite Negative (Negative); Protein, Urine (Dipstick) 50 mg/dL (Neg-Trace); Specific Gravity, Urine 1.025 (1.002-1.036); Squamous Epithelial 0-3 HPF (0-3); Urobilinogen Normal mg/dL (Less than 2); WBC/HPF 0-3 HPF (0-3); pH, Urine 5.5 (5.0-9.0)
[2021-01-13 19:46] LABS: Lactic Acid 2.1 mmol/L (0.5-2.2)
[2021-01-13] MEDS ORDERED: Potassium Chloride 20 MEQ TAB PO SCH (22:30)
[2021-01-13] MEDS ORDERED: Electrolyte Replacement Protocol 1 EACH FS PRN (22:30)
[2021-01-13 22:31] VITALS: BMI 68.0
[2021-01-13] MEDS ORDERED: Ondansetron ODT 4 MG TAB PO PRN (22:32)
[2021-01-13] MEDS ORDERED: Acetaminophen 325 MG TAB PO PRN (22:32)
[2021-01-13] MEDS ORDERED: HYDROcodone/Acetaminophen 5/325 mg Tablet PO PRN (22:32)
[2021-01-13] MEDS ORDERED: Ondansetron PF 4 MG/2 ML Vial IVP PRN (22:32)
[2021-01-13] MEDS ORDERED: VANCOMYCIN 1.25 GM/250 ML BAG 1.25 GM in Premix Bag 1 BAG IVPB SCH (23:00)
[2021-01-13] MEDS ORDERED: Potassium Chloride 20 MEQ TAB ONE (23:18)
[2021-01-14] MEDS ORDERED: Labetalol HCl 100 MG/20 ML VIAL SLOW IVP PRN (00:28)
[2021-01-14] MEDS ORDERED: hydrALAZINE 20 MG/ML VIAL SLOW IVP PRN (00:28)
[2021-01-14] MEDS ORDERED: Acetaminophen 325 MG TAB ONE (00:35)
[2021-01-14] MEDS: Cefepime 2 GM in Sodium Chloride 0.9% 100 ML IVPB SCH ×2 (05:00→18:10)
[2021-01-14] MEDS ORDERED: Cefepime 2 GM VIAL ONE (05:14)
[2021-01-14 05:22] LABS: SARS-CoV-2 PCR by NAA Not Detected (NotDetected)
[2021-01-14 06:05] LABS: Hemoglobin A1c 5.7 % (4.0-6.0)
[2021-01-14 06:20] LABS: Anion Gap 15 mmol/L (10-20); BUN (Urea Nitrogen) 15 mg/dL (8.9-20.6); Calc. Creatinine Clearance 266 mL/min (70-130); Calcium 8.5 mg/dL (7.8-10.44); Carbon Dioxide 22 mmol/L (22-29); Chloride 97 mmol/L (98-107); Glucose 143 mg/dL (70-105); Potassium 3.2 mmol/L (3.5-5.1); Sodium 131 mmol/L (136-145)
[2021-01-14 07:25] LABS: #Lymphocytes 0.8 thou/uL (1.20-3.40); #Monocytes 0.7 thou/uL (0.11-0.59); #Neutrophils 9.8 thou/uL (1.40-6.50); %Basophils 0.2 % (0.0-1.0); %Eosinophils 0.1 % (0.0-10.0); %Lymphocytes 6.7 % (21.0-51.0); %Monocytes 5.8 % (0.0-10.0); %Neutrophils 87.1 % (42.0-75.0); Hemoglobin 15.4 g/dL (14.0-18.0); Mean Corpuscular Hemoglobin 29.7 pg (27.0-31.0); Mean Corpuscular Volume 87.3 fL (78.0-98.0); Mean Platelet Volume 8.6 fL (7.4-10.4); Platelet Count 150 thou/uL (130-400); RBC Distribution Width 13.2 % (11.5-14.5); Red Blood Cell (RBC) Count 5.21 mill/uL (4.70-6.10); White Blood Cell (WBC) Count 11.3 thou/uL (4.8-10.8)
[2021-01-14] MEDS ORDERED: Potassium Chloride 20 MEQ TAB PO SCH (07:45)
[2021-01-14] MEDS: VANCOMYCIN 2 GRAM/400 ML BAG 2 GM in Premix Bag 1 BAG IVPB SCH ×2 (10:02→22:48)
[2021-01-14] MEDS ORDERED: Potassium Chloride 20 MEQ TAB ONE (10:06)
[2021-01-14] MEDS: Sodium Chloride 0.9% 1,000 ML IV SCH ×2 (10:10→18:09)
[2021-01-14] MEDS: Enoxaparin Sodium 40 MG/0.4 ML SYRINGE SC SCH (11:08)
[2021-01-15] MEDS: Cefepime 2 GM in Sodium Chloride 0.9% 100 ML IVPB SCH ×2 (04:28→16:22)
[2021-01-15] MEDS: Sodium Chloride 0.9% 1,000 ML IV SCH (07:57)
[2021-01-15] MEDS ORDERED: Potassium Chloride 20 MEQ TAB PO SCH (08:30)
[2021-01-15] MEDS: Enoxaparin Sodium 40 MG/0.4 ML SYRINGE SC SCH (09:15)
[2021-01-15 10:36] LABS: Vancomycin, Trough 8.6 ug/mL
[2021-01-15] MEDS: VANCOMYCIN 2 GRAM/400 ML BAG 2 GM in Premix Bag 1 BAG IVPB SCH ×3 (10:55→19:07)
[2021-01-16] MEDS: VANCOMYCIN 2 GRAM/400 ML BAG 2 GM in Premix Bag 1 BAG IVPB SCH (03:38)
[2021-01-16] MEDS: Cefepime 2 GM in Sodium Chloride 0.9% 100 ML IVPB SCH (04:23)
[2021-01-16 05:48] LABS: #Eosinphils 0.2 thou/uL (0.0-0.7); #Lymphocytes 1.1 thou/uL (1.20-3.40); #Monocytes 0.6 thou/uL (0.11-0.59); #Neutrophils 2.7 thou/uL (1.40-6.50); %Basophils 0.7 % (0.0-1.0); %Eosinophils 3.9 % (0.0-10.0); %Lymphocytes 23.4 % (21.0-51.0); %Monocytes 12.7 % (0.0-10.0); %Neutrophils 59.4 % (42.0-75.0); Hemoglobin 14.3 g/dL (14.0-18.0); Mean Corpuscular HGB CONC 34.5 g/dL (32.0-36.0); Mean Corpuscular Hemoglobin 30.1 pg (27.0-31.0); Mean Corpuscular Volume 87.2 fL (78.0-98.0); Mean Platelet Volume 8.5 fL (7.4-10.4); Platelet Count 134 thou/uL (130-400); RBC Distribution Width 12.5 % (11.5-14.5); Red Blood Cell (RBC) Count 4.76 mill/uL (4.70-6.10); White Blood Cell (WBC) Count 4.6 thou/uL (4.8-10.8)
[2021-01-16 06:06] LABS: Anion Gap 11 mmol/L (10-20); BUN (Urea Nitrogen) 11 mg/dL (8.9-20.6); Calc. Creatinine Clearance 429 mL/min (70-130); Calcium 7.9 mg/dL (7.8-10.44); Carbon Dioxide 25 mmol/L (22-29); Chloride 102 mmol/L (98-107); Glucose 109 mg/dL (70-105); Potassium 3.6 mmol/L (3.5-5.1); Sodium 134 mmol/L (136-145)
[2021-01-16 07:07] VITALS: BP 160/98; TEMP 98
[2021-01-16] MEDS: Enoxaparin Sodium 40 MG/0.4 ML SYRINGE SC SCH (08:44)
[2021-01-16] MEDS ORDERED: Losartan 25 MG TAB PO SCH (09:00)
[2021-01-16] MEDS ORDERED: Hydrochlorothiazide 25 MG TAB PO SCH (09:00)
== END 2021-01-16 10:00 | disposition home or self-care (01) | DRG 872 ==
LOC: ERS 16:18 → ERHOLD 20:33 → 2NO 01-14 10:45
PROVIDERS: ADMIT Student in an Organized Health Care Education/Training Program; ATTEND Family Medicine
DX: A41.9 Sepsis, unspecified organism (principal); L03.115 Cellulitis of right lower limb; Z68.44 Body mass index [BMI] 60.0-69.9, adult; N17.9 Acute kidney failure, unspecified; I10 Essential (primary) hypertension; R65.20 Severe sepsis without septic shock; E66.01 Morbid (severe) obesity due to excess calories; I45.6 Pre-excitation syndrome; Z90.89 Acquired absence of other organs; Z79.2 Long term (current) use of antibiotics; Z79.899 Other long term (current) drug therapy; Z20.822 Contact with and (suspected) exposure to COVID-19
CPT/HCPCS: 36415; 80048; 80053; 80202; 81003; 81015; 83036; 83605; 85025; 87040; 87635; 93005; 96365; 96366; 96367; J0692; J1650; J3370; J3490; U0003; U0005

== ENCOUNTER 2021-11-19 11:09 | Outpatient (CLI) | payer BC | END 2021-11-19 11:10 | disposition home or self-care (01) | LOC: DTY/OP 11:09 | PROVIDERS: ATTEND Chiropractor | DX: E66.01 Morbid (severe) obesity due to excess calories (principal); I10 Essential (primary) hypertension; Z68.45 Body mass index [BMI] 70 or greater, adult | CPT/HCPCS: 97802 ==

== ENCOUNTER 2022-02-17 23:48 | Emergency (ER) | payer BC ==
[2022-02-18] MEDS ORDERED: Clindamycin 150 MG CAP ONE (00:20)
== END 2022-02-18 00:34 | disposition home or self-care (01) ==
LOC: ERS 23:48
DX: L03.116 Cellulitis of left lower limb (principal); I10 Essential (primary) hypertension; E66.9 Obesity, unspecified; F17.210 Nicotine dependence, cigarettes, uncomplicated; Z79.899 Other long term (current) drug therapy
CPT/HCPCS: 99283

== ENCOUNTER 2022-05-22 12:46 | Emergency (ER) | payer BC, SELFPAY ==
[2022-05-22 13:39] LABS: #Eosinphils 0.2 thou/uL (0.0-0.7); #Lymphocytes 0.8 thou/uL (1.20-3.40); #Monocytes 0.4 thou/uL (0.11-0.59); #Neutrophils 10.2 thou/uL (1.40-6.50); %Basophils 0.2 % (0.0-1.0); %Eosinophils 1.4 % (0.0-10.0); %Lymphocytes 6.9 % (21.0-51.0); %Monocytes 3.8 % (0.0-10.0); %Neutrophils 87.7 % (42.0-75.0); Hemoglobin 17.7 g/dL (14.0-18.0); Mean Corpuscular Hemoglobin 29.5 pg (27.0-31.0); Mean Corpuscular Volume 86.7 fL (78.0-98.0); Mean Platelet Volume 8.2 fL (7.4-10.4); Platelet Count 181 thou/uL (130-400); RBC Distribution Width 12.3 % (11.5-14.5); White Blood Cell (WBC) Count 11.6 thou/uL (4.8-10.8)
[2022-05-22 13:47] LABS: Bilirubin Negative (Negative); Blood, Urine Negative (Negative); Clarity Clear (Clear); Glucose, Urine (Dipstick) 500 mg/dL (Negative); Ketone, Urine Negative (Negative); Leukocyte Negative Leu/uL (Negative); Nitrite Negative (Negative); Protein, Urine (Dipstick) Negative (Neg-Trace); Specific Gravity, Urine 1.012 (1.002-1.036)
[2022-05-22 14:02] LABS: ALT (SGPT) 22 U/L (8-55); AST (SGOT) 26 U/L (5-34); Albumin 4.3 g/dL (3.5-5.0); Alkaline Phosphatase 88 U/L (40-110); Anion Gap 14 mmol/L (10-20); BUN (Urea Nitrogen) 12 mg/dL (8.9-20.6); Bilirubin, Total 1.8 mg/dL (0.2-1.2); Calc. Creatinine Clearance 0 mL/min (70-130); Carbon Dioxide 29 mmol/L (22-29); Chloride 99 mmol/L (98-107); Estimated GFR 73; Glucose 165 mg/dL (70-105); Lipase 54 U/L (8-78); Protein, Total 7.3 g/dL (6.0-8.3); Sodium 138 mmol/L (136-145)
[2022-05-22] MEDS ORDERED: Cefepime 2 GM VIAL ONE (14:31)
[2022-05-22] MEDS ORDERED: Ketorolac Tromethamine 30 MG/ML VIAL ONE (14:39)
[2022-05-22] MEDS ORDERED: VANCOMYCIN 2 GRAM/500 ML BAG 2 GM in Premix Bag 1 BAG IVPB SCH (15:00)
== END 2022-05-22 17:39 | disposition home or self-care (01) ==
LOC: ERS 12:46
DX: L03.115 Cellulitis of right lower limb (principal); R03.0 Elevated blood-pressure reading, without diagnosis of hypertension; I10 Essential (primary) hypertension; G20 Parkinson's disease; F17.210 Nicotine dependence, cigarettes, uncomplicated; Z79.899 Other long term (current) drug therapy
CPT/HCPCS: 36415; 71045; 80053; 81003; 83605; 83690; 83880; 84484; 85025; 85379; 87040; 93005; 96365; 96366; 96367; 96375; J0692; J1885; J3370

== ENCOUNTER 2022-06-29 10:32 | Emergency (ER) | payer SELFPAY ==
[2022-06-29 11:44] LABS: #Eosinphils 0.2 thou/uL (0.0-0.7); #Lymphocytes 1.3 thou/uL (1.20-3.40); #Monocytes 0.5 thou/uL (0.11-0.59); #Neutrophils 4.3 thou/uL (1.40-6.50); %Basophils 0.5 % (0.0-1.0); %Eosinophils 3.1 % (0.0-10.0); %Lymphocytes 20.7 % (21.0-51.0); %Monocytes 8.2 % (0.0-10.0); %Neutrophils 67.5 % (42.0-75.0); Hemoglobin 16.2 g/dL (14.0-18.0); Mean Corpuscular HGB CONC 33.2 g/dL (32.0-36.0); Mean Corpuscular Hemoglobin 29.4 pg (27.0-31.0); Mean Corpuscular Volume 88.6 fL (78.0-98.0); Mean Platelet Volume 8.4 fL (7.4-10.4); Platelet Count 167 thou/uL (130-400); RBC Distribution Width 12.6 % (11.5-14.5); Red Blood Cell (RBC) Count 5.51 mill/uL (4.70-6.10); White Blood Cell (WBC) Count 6.4 thou/uL (4.8-10.8)
[2022-06-29 12:06] LABS: ALT (SGPT) 21 U/L (8-55); AST (SGOT) 25 U/L (5-34); Albumin 3.9 g/dL (3.5-5.0); Alkaline Phosphatase 82 U/L (40-110); Anion Gap 12 mmol/L (10-20); BUN (Urea Nitrogen) 8 mg/dL (8.9-20.6); Bilirubin, Total 1.5 mg/dL (0.2-1.2); Calc. Creatinine Clearance 0 mL/min (70-130); Carbon Dioxide 27 mmol/L (22-29); Chloride 102 mmol/L (98-107); Estimated GFR 90; Glucose 126 mg/dL (70-105); Potassium 4.1 mmol/L (3.5-5.1); Protein, Total 6.9 g/dL (6.0-8.3); Sodium 137 mmol/L (136-145)
[2022-06-29] MEDS ORDERED: Doxycycline 100 MG CAP PO SCH (13:30)
== END 2022-06-29 14:13 | disposition home or self-care (01) ==
LOC: ERS 10:32
DX: L03.115 Cellulitis of right lower limb (principal); I10 Essential (primary) hypertension; F17.210 Nicotine dependence, cigarettes, uncomplicated
CPT/HCPCS: 36415; 80053; 85025; 99283

== ENCOUNTER 2022-12-26 21:29 | Emergency (ER) | payer SELFPAY ==
[2022-12-26 22:57] LABS: #Eosinphils 0.1 thou/uL (0.0-0.7); #Lymphocytes 0.8 thou/uL (1.20-3.40); #Monocytes 0.7 thou/uL (0.11-0.59); #Neutrophils 11.6 thou/uL (1.40-6.50); %Basophils 0.1 % (0.0-1.0); %Eosinophils 1.1 % (0.0-10.0); %Lymphocytes 6.2 % (21.0-51.0); %Neutrophils 87.6 % (42.0-75.0); Hemoglobin 18.2 g/dL (14.0-18.0); Mean Corpuscular HGB CONC 35.6 g/dL (32.0-36.0); Mean Corpuscular Hemoglobin 30.9 pg (27.0-31.0); Mean Corpuscular Volume 86.8 fl (78.0-98.0); Mean Platelet Volume 8.3 fL (7.4-10.4); Platelet Count 158 10x3/uL (130-400); RBC Distribution Width 12.3 % (11.5-14.5); White Blood Cell (WBC) Count 13.2 10x3/uL (4.8-10.8)
[2022-12-26 23:27] LABS: ALT (SGPT) 21 U/L (8-55); AST (SGOT) 21 U/L (5-34); Albumin 3.8 g/dL (3.5-5.0); Alkaline Phosphatase 95 U/L (40-110); Anion Gap 13 mmol/L (10-20); BUN (Urea Nitrogen) 9 mg/dL (8.9-20.6); Bilirubin, Total 1.5 mg/dL (0.2-1.2); Calc. Creatinine Clearance 0 mL/min (70-130); Calcium 9.1 mg/dL (7.8-10.44); Carbon Dioxide 26 mmol/L (22-29); Chloride 102 mmol/L (98-107); Estimated GFR 73; Globulin 3.2 g/dL (2.4-3.5); Glucose 176 mg/dL (70-105); Potassium 3.5 mmol/L (3.5-5.1); Sodium 137 mmol/L (136-145)
[2022-12-27] MEDS ORDERED: Losartan 25 MG TAB PO SCH (01:30)
== END 2022-12-27 01:54 | disposition home or self-care (01) ==
LOC: ERS 21:29
DX: L03.115 Cellulitis of right lower limb (principal); I87.8 Other specified disorders of veins; D72.829 Elevated white blood cell count, unspecified; I10 Essential (primary) hypertension; E66.9 Obesity, unspecified; F17.210 Nicotine dependence, cigarettes, uncomplicated; Z79.899 Other long term (current) drug therapy
CPT/HCPCS: 36415; 80053; 85025; 99283

== ENCOUNTER 2023-07-20 16:18 | Emergency (ER) | payer SELFPAY ==
[2023-07-20] MEDS ORDERED: Losartan 25 MG TAB PO SCH (17:15)
[2023-07-20] MEDS ORDERED: Clindamycin 150 MG CAP ONE (17:18)
[2023-07-20 18:23] LABS: Bilirubin Negative (Negative); Blood, Urine 1+ (Negative); CAUTI Indications for Culture Dysuria,urgency,freq; Clarity Turbid (Clear); Glucose, Urine (Dipstick) 300 mg/dL (Negative); Ketone, Urine Negative (Negative); Leukocyte Negative Leu/uL (Negative); Nitrite Negative (Negative); Protein, Urine (Dipstick) 100 mg/dL (Neg-Trace); RBC/HPF 0-3 HPF (0-3); Specific Gravity, Urine 1.024 (1.002-1.036); Urobilinogen Normal mg/dL (Less than 2); WBC/HPF 0-3 HPF (0-3); pH, Urine 5.5 (5.0-9.0)
[2023-07-20 18:25] LABS: Bacteria/HPF 1+ HPF (None Seen); Urine Culture Reflex No No
[2023-07-20 18:38] LABS: ALT (SGPT) 22 U/L (8-55); AST (SGOT) 23 U/L (5-34); Albumin 4.6 g/dL (3.5-5.0); Alkaline Phosphatase 85 U/L (40-110); Anion Gap 15 mmol/L (10-20); BUN (Urea Nitrogen) 12 mg/dL (8.9-20.6); Bilirubin, Total 1.4 mg/dL (0.2-1.2); Calc. Creatinine Clearance 0 mL/min (70-130); Calcium 9.3 mg/dL (7.8-10.44); Carbon Dioxide 25 mmol/L (22-29); Chloride 99 mmol/L (98-107); Estimated GFR 82; Globulin 3.1 g/dL (2.4-3.5); Glucose 157 mg/dL (70-105); Magnesium 1.8 mg/dL (1.6-2.6); Potassium 3.7 mmol/L (3.5-5.1); Protein, Total 7.7 g/dL (6.0-8.3); Sodium 135 mmol/L (136-145)
[2023-07-20 18:54] LABS: #Eosinphils 0.1 thou/uL (0.0-0.7); #Monocytes 0.5 thou/uL (0.11-0.59); #Neutrophils 8.6 thou/uL (1.40-6.50); %Basophils 0.3 % (0.0-1.0); %Eosinophils 1.1 % (0.0-10.0); %Lymphocytes 7.1 % (21.0-51.0); %Neutrophils 86.2 % (42.0-75.0); Hemoglobin 16.7 g/dL (14.0-18.0); Mean Corpuscular HGB CONC 34.8 g/dL (32.0-36.0); Mean Corpuscular Hemoglobin 29.4 pg (27.0-31.0); Mean Corpuscular Volume 84.5 fl (78.0-98.0); Mean Platelet Volume 10.1 fL (7.4-10.4); Platelet Count 179 10x3/uL (130-400); RBC Distribution Width 12.6 % (11.5-14.5); Red Blood Cell (RBC) Count 5.68 mill/uL (4.70-6.10); White Blood Cell (WBC) Count 9.9 10x3/uL (4.8-10.8)
[2023-07-20] MEDS ORDERED: Ketorolac Tromethamine 30 MG/ML VIAL ONE (19:40)
[2023-07-20] MEDS ORDERED: Acetaminophen 500 MG TAB ONE (19:40)
== END 2023-07-20 21:40 | disposition home or self-care (01) ==
LOC: ERS 16:18
DX: L03.116 Cellulitis of left lower limb (principal); R03.0 Elevated blood-pressure reading, without diagnosis of hypertension; I10 Essential (primary) hypertension; F17.290 Nicotine dependence, other tobacco product, uncomplicated
CPT/HCPCS: 36415; 80053; 81001; 83735; 85025; 87040; 87086; 96372; 99283; J1885

== ENCOUNTER 2023-08-18 11:28 | Inpatient (IN) | payer BC, SELFPAY ==
[2023-08-18 13:21] LABS: #Eosinphils 0.1 thou/uL (0.0-0.7); #Monocytes 0.5 thou/uL (0.11-0.59); #Neutrophils 4.1 thou/uL (1.40-6.50); %Basophils 0.4 % (0.0-1.0); %Eosinophils 1.7 % (0.0-10.0); %Lymphocytes 12.3 % (21.0-51.0); %Monocytes 9.9 % (0.0-10.0); %Neutrophils 75.5 % (42.0-75.0); Hematocrit 44.6 % (42.0-52.0); Hemoglobin 15.4 g/dL (14.0-18.0); Mean Corpuscular HGB CONC 34.5 g/dL (32.0-36.0); Mean Corpuscular Hemoglobin 29.3 pg (27.0-31.0); Mean Corpuscular Volume 84.8 fl (78.0-98.0); Mean Platelet Volume 10.6 fL (7.4-10.4); Platelet Count 159 10x3/uL (130-400); RBC Distribution Width 12.2 % (11.5-14.5); Red Blood Cell (RBC) Count 5.26 mill/uL (4.70-6.10); White Blood Cell (WBC) Count 5.4 10x3/uL (4.8-10.8)
[2023-08-18 13:22] LABS: Bacteria/HPF None Seen HPF (None Seen); Bilirubin Negative (Negative); Blood, Urine 2+ (Negative); CAUTI Indications for Culture Dysuria,urgency,freq; Clarity Clear (Clear); Glucose, Urine (Dipstick) 30 mg/dL (Negative); Ketone, Urine Negative (Negative); Leukocyte 75 Leu/uL (Negative); Nitrite Negative (Negative); Protein, Urine (Dipstick) 100 mg/dL (Neg-Trace); RBC/HPF 0-3 HPF (0-3); Specific Gravity, Urine 1.019 (1.002-1.036); Squamous Epithelial 0-3 HPF (0-3); Urobilinogen 3 mg/dL (Less than 2); WBC/HPF 21-50 HPF (0-3); pH, Urine 6.5 (5.0-9.0)
[2023-08-18 13:32] LABS: Urine Culture Reflex Yes Yes
[2023-08-18] MEDS ORDERED: Acetaminophen 500 MG TAB ONE (13:40)
[2023-08-18] MEDS ORDERED: Ibuprofen 200 MG TAB ONE (13:40)
[2023-08-18] MEDS ORDERED: Cefepime 2 GM VIAL ONE (13:41)
[2023-08-18] MEDS ORDERED: Sodium Chloride 0.9% 100 ML ONE (13:41)
[2023-08-18 13:45] LABS: ALT (SGPT) 17 U/L (8-55); AST (SGOT) 18 U/L (5-34); Albumin 4.3 g/dL (3.5-5.0); Alkaline Phosphatase 72 U/L (40-110); Anion Gap 12 mmol/L (10-20); BUN (Urea Nitrogen) 10 mg/dL (8.9-20.6); Bilirubin, Total 1.2 mg/dL (0.2-1.2); Calc. Creatinine Clearance 0 mL/min (70-130); Calcium 8.8 mg/dL (7.8-10.44); Carbon Dioxide 27 mmol/L (22-29); Chloride 98 mmol/L (98-107); Estimated GFR 68; Globulin 3.1 g/dL (2.4-3.5); Glucose 141 mg/dL (70-105); Lipase 25 U/L (8-78); Potassium 3.4 mmol/L (3.5-5.1); Protein, Total 7.4 g/dL (6.0-8.3); Sodium 134 mmol/L (136-145)
[2023-08-18] MEDS ORDERED: dilTIAZem 25 MG/5 ML VIAL ONE (13:46)
[2023-08-18 13:48] LABS: SARS-CoV-2 NAA Rapid Test Not Detected (NotDetected)
[2023-08-18] MEDS ORDERED: Labetalol HCl 100 MG/20 ML VIAL SLOW IVP SCH (14:48)
[2023-08-18] MEDS ORDERED: Acetaminophen 325 MG TAB PO PRN (15:03)
[2023-08-18 15:07] VITALS: BMI 63.8
[2023-08-18] MEDS ORDERED: Vancomycin 1 GM/200 ML (FROZEN) BAG ONE (15:28)
[2023-08-18] MEDS: Sodium Chloride 0.9% 1,000 ML IV SCH (16:33)
[2023-08-18] MEDS: Heparin 5,000 UNITS/ML VIAL SC SCH (22:03)
[2023-08-18] MEDS: hydrALAZINE 25 MG TAB PO SCH (22:03)
[2023-08-19] MEDS: hydrALAZINE 20 MG/ML VIAL SLOW IVP PRN ×2 (00:03→12:45)
[2023-08-19] MEDS ORDERED: Cefepime 1 GM in Sodium Chloride 0.9% 100 ML IVPB SCH (02:00)
[2023-08-19] MEDS: Sodium Chloride 0.9% 1,000 ML IV SCH (03:40)
[2023-08-19 05:39] LABS: #Eosinphils 0.1 thou/uL (0.0-0.7); #Monocytes 0.6 thou/uL (0.11-0.59); %Basophils 0.2 % (0.0-1.0); %Eosinophils 3.1 % (0.0-10.0); %Lymphocytes 16.9 % (21.0-51.0); %Monocytes 13.6 % (0.0-10.0); %Neutrophils 65.8 % (42.0-75.0); Hematocrit 41.2 % (42.0-52.0); Mean Corpuscular Volume 85.3 fl (78.0-98.0); Mean Platelet Volume 10.6 fL (7.4-10.4); Platelet Count 154 10x3/uL (130-400); RBC Distribution Width 12.3 % (11.5-14.5); Red Blood Cell (RBC) Count 4.83 mill/uL (4.70-6.10); White Blood Cell (WBC) Count 4.6 10x3/uL (4.8-10.8)
[2023-08-19 06:15] LABS: Anion Gap 9 mmol/L (10-20); BUN (Urea Nitrogen) 10 mg/dL (8.9-20.6); Calc. Creatinine Clearance 279 mL/min (70-130); Calcium 8.5 mg/dL (7.8-10.44); Carbon Dioxide 27 mmol/L (22-29); Chloride 102 mmol/L (98-107); Estimated GFR 78; Glucose 150 mg/dL (70-105); Potassium 3.8 mmol/L (3.5-5.1); Sodium 134 mmol/L (136-145)
[2023-08-19] MEDS: hydrALAZINE 25 MG TAB PO SCH ×2 (08:41→13:55)
[2023-08-19] MEDS: Heparin 5,000 UNITS/ML VIAL SC SCH ×3 (08:45→22:59)
[2023-08-19] MEDS ORDERED: FLU VACC QS2023-24(6MOS UP)/PF 60 MCG/0.5 ML SYRINGE IM ONE (09:00)
[2023-08-19] MEDS ORDERED: Losartan 25 MG TAB PO SCH (12:45)
[2023-08-19] MEDS: Cefepime 2 GM in Sodium Chloride 0.9% 100 ML IVPB SCH (13:53)
[2023-08-19] MEDS ORDERED: hydrALAZINE 25 MG TAB PO SCH ×2 (17:15→21:00)
[2023-08-19] MEDS: cloNIDine 0.1 MG TAB PO PRN (18:35)
[2023-08-20] MEDS: cloNIDine 0.1 MG TAB PO PRN ×2 (01:45→13:57)
[2023-08-20] MEDS: Cefepime 2 GM in Sodium Chloride 0.9% 100 ML IVPB SCH ×2 (02:11→13:57)
[2023-08-20] MEDS: hydrALAZINE 20 MG/ML VIAL SLOW IVP PRN ×2 (03:33→13:58)
[2023-08-20 05:50] LABS: #Eosinphils 0.2 thou/uL (0.0-0.7); #Monocytes 0.7 thou/uL (0.11-0.59); #Neutrophils 2.7 thou/uL (1.40-6.50); %Basophils 0.4 % (0.0-1.0); %Eosinophils 4.8 % (0.0-10.0); %Lymphocytes 19.4 % (21.0-51.0); %Monocytes 14.8 % (0.0-10.0); %Neutrophils 59.9 % (42.0-75.0); Hematocrit 40.5 % (42.0-52.0); Hemoglobin 13.7 g/dL (14.0-18.0); Mean Corpuscular HGB CONC 33.8 g/dL (32.0-36.0); Mean Corpuscular Hemoglobin 29.2 pg (27.0-31.0); Mean Corpuscular Volume 86.4 fl (78.0-98.0); Mean Platelet Volume 10.8 fL (7.4-10.4); Platelet Count 168 10x3/uL (130-400); RBC Distribution Width 12.6 % (11.5-14.5); Red Blood Cell (RBC) Count 4.69 mill/uL (4.70-6.10); White Blood Cell (WBC) Count 4.5 10x3/uL (4.8-10.8)
[2023-08-20 05:56] LABS: Hemoglobin A1c 6.8 % (4.0-6.0)
[2023-08-20 06:14] LABS: Anion Gap 15 mmol/L (10-20); BUN (Urea Nitrogen) 11 mg/dL (8.9-20.6); Calc. Creatinine Clearance 264 mL/min (70-130); Calcium 8.6 mg/dL (7.8-10.44); Carbon Dioxide 26 mmol/L (22-29); Chloride 101 mmol/L (98-107); Estimated GFR 73; Glucose 143 mg/dL (70-105); Potassium 3.6 mmol/L (3.5-5.1); Sodium 138 mmol/L (136-145)
[2023-08-20] MEDS ORDERED: Losartan 25 MG TAB PO SCH (09:00)
[2023-08-20] MEDS ORDERED: Amlodipine 5 MG TAB PO SCH (09:00)
[2023-08-20] MEDS ORDERED: Non-Formulary Item 1 EACH (Losartan Potassium [Cozaar] 100 MG Tablet) PO SCH (09:00)
[2023-08-20 09:25] VITALS: TEMP 97.7
[2023-08-20] MEDS: hydrALAZINE 25 MG TAB PO SCH ×2 (09:57→14:07)
[2023-08-20] MEDS: Heparin 5,000 UNITS/ML VIAL SC SCH ×2 (09:57→14:07)
[2023-08-20 14:07] VITALS: BP 183/112
[2023-08-20] MEDS ORDERED: metFORMIN 500 MG TAB PO SCH (17:00)
== END 2023-08-20 15:23 | disposition home or self-care (01) | DRG 872 ==
LOC: ERS 11:28 → ERHOLD 14:24 → T4-A 18:42
PROVIDERS: ADMIT Internal Medicine; ATTEND Internal Medicine
DX: A41.9 Sepsis, unspecified organism (principal); N39.0 Urinary tract infection, site not specified; N17.9 Acute kidney failure, unspecified; E87.1 Hypo-osmolality and hyponatremia; F17.210 Nicotine dependence, cigarettes, uncomplicated; I45.6 Pre-excitation syndrome; E66.01 Morbid (severe) obesity due to excess calories; I16.0 Hypertensive urgency; N18.2 Chronic kidney disease, stage 2 (mild); R65.20 Severe sepsis without septic shock; I12.9 Hypertensive chronic kidney disease with stage 1 through stage 4 chronic kidney disease, or unspecified chronic kidney disease; E87.6 Hypokalemia; E11.65 Type 2 diabetes mellitus with hyperglycemia; E11.22 Type 2 diabetes mellitus with diabetic chronic kidney disease; Z90.49 Acquired absence of other specified parts of digestive tract; Z91.148 Patient's other noncompliance with medication regimen for other reason; Z11.52 Encounter for screening for COVID-19; Z98.890 Other specified postprocedural states
CPT/HCPCS: 36415; 36416; 71045; 80048; 80053; 81001; 83036; 83605; 83690; 85025; 87040; 87077; 87086; 87149; 90471; 90686; 96365; 96367; 96375; G0008; J0360; J0692; J1644; J3370-JW; J3490; J7050

== ENCOUNTER 2025-05-21 18:23 | Emergency (ER) | payer BC, SELFPAY ==
[2025-05-21 19:31] LABS: Bacteria/HPF None Seen HPF (None Seen); CAUTI Indications for Culture Dysuria,urgency,freq; Glucose, Urine (Dipstick) 200 mg/dL (Negative); Leukocyte Negative Leu/uL (Negative); Protein, Urine (Dipstick) 200 mg/dL (Neg-Trace); RBC/HPF 0-3 HPF (0-3); Specific Gravity, Urine 1.031 (1.002-1.036)
[2025-05-21 19:36] LABS: Urine Culture Reflex No No
[2025-05-21] MEDS ORDERED: Ketorolac Tromethamine 30 MG (1 mL) VIAL ONE (21:40)
[2025-05-21 21:45] LABS: #Basophils 0.04 10x3/uL (0.0-0.2); #Eosinophils Less than 0.03 10x3/uL (0.0-0.7); #Monocytes 0.78 10x3/uL (0.11-0.59); #Neutrophils 16.88 10x3/uL (1.40-6.50); %Basophils 0.2 % (0.0-1.0); %Eosinophils 0.0 % (0.0-10.0); %Lymphocytes 2.8 % (21.0-51.0); %Monocytes 4.2 % (0.0-10.0); %Neutrophils 92.0 % (42.0-75.0); Hematocrit 49.9 % (42.0-52.0); Hemoglobin 17.0 g/dL (14.0-18.0); Mean Corpuscular Hemoglobin 27.8 pg (27.0-31.0); Mean Corpuscular Volume 81.7 fL (78.0-98.0); Platelet Count 169 10x3/uL (130-400); Red Blood Cell (RBC) Count 6.11 mill/uL (4.70-6.10); White Blood Cell (WBC) Count 18.37 10x3/uL (4.8-10.8)
[2025-05-21 22:12] LABS: ALT (SGPT) 23 U/L (Less than 45); AST (SGOT) 31 U/L (11-34); Albumin 4.0 g/dL (3.1-4.5); Alkaline Phosphatase 61 U/L (40-110); Anion Gap 15 mmol/L (10-20); BUN (Urea Nitrogen) 13 mg/dL (8.9-20.6); Bilirubin, Total 1.9 mg/dL (0.3-1.2); Calc. Creatinine Clearance 0 mL/min (70-130); Calcium 9.0 mg/dL (7.8-10.44); Carbon Dioxide 25 mmol/L (22-29); Chloride 101 mmol/L (98-107); Globulin 3.7 g/dL (2.4-3.5); Glucose 189 mg/dL (70-105); Lipase 19 U/L (8-78); Potassium 3.7 mmol/L (3.5-5.1); Sodium 137 mmol/L (136-145)
== END 2025-05-21 23:39 | disposition home or self-care (01) ==
LOC: ERS 18:23
DX: K57.92 Diverticulitis of intestine, part unspecified, without perforation or abscess without bleeding (principal); I10 Essential (primary) hypertension; E11.9 Type 2 diabetes mellitus without complications; F17.290 Nicotine dependence, other tobacco product, uncomplicated
CPT/HCPCS: 36416; 80053; 81001; 83690; 85025; 96365; 96375; J1885; J2543

== ENCOUNTER 2025-07-23 10:35 | Inpatient (IN) | payer OTHER, SELFPAY ==
[2025-07-23] MEDS ORDERED: Ibuprofen 800 MG TAB ONE (11:03)
[2025-07-23 12:09] LABS: #Basophils 0.03 10x3/uL (0.0-0.2); #Eosinophils 0.04 10x3/uL (0.0-0.7); #Monocytes 0.32 10x3/uL (0.11-0.59); #Neutrophils 13.19 10x3/uL (1.40-6.50); %Basophils 0.2 % (0.0-1.0); %Eosinophils 0.3 % (0.0-10.0); %Lymphocytes 3.1 % (21.0-51.0); %Monocytes 2.3 % (0.0-10.0); %Neutrophils 93.6 % (42.0-75.0); Hematocrit 51.2 % (42.0-52.0); Hemoglobin 16.9 g/dL (14.0-18.0); Mean Corpuscular Hemoglobin 26.8 pg (27.0-31.0); Mean Corpuscular Volume 81.1 fL (78.0-98.0); Platelet Count 168 10x3/uL (130-400); Red Blood Cell (RBC) Count 6.31 mill/uL (4.70-6.10); White Blood Cell (WBC) Count 14.09 10x3/uL (4.8-10.8)
[2025-07-23 12:28] LABS: ALT (SGPT) 19 U/L (Less than 45); AST (SGOT) 31 U/L (11-34); Albumin 4.1 g/dL (3.1-4.5); Alkaline Phosphatase 63 U/L (40-110); Anion Gap 13 mmol/L (10-20); BUN (Urea Nitrogen) 14 mg/dL (8.9-20.6); Bilirubin, Total 1.3 mg/dL (0.3-1.2); Calc. Creatinine Clearance 0 mL/min (70-130); Calcium 9.1 mg/dL (7.8-10.44); Carbon Dioxide 23 mmol/L (22-29); Chloride 104 mmol/L (98-107); Globulin 3.6 g/dL (2.4-3.5); Glucose 184 mg/dL (70-105); Potassium 3.7 mmol/L (3.5-5.1); Sodium 136 mmol/L (136-145)
[2025-07-23] MEDS ORDERED: Acetaminophen 500 MG TAB ONE (14:20)
[2025-07-23 14:35] LABS: CAUTI Indications for Culture Fever or rigors; Glucose, Urine (Dipstick) 200 mg/dL (Negative); Leukocyte Negative Leu/uL (Negative); Protein, Urine (Dipstick) 200 mg/dL (Neg-Trace); Specific Gravity, Urine 1.016 (1.002-1.036); WBC/HPF 0-3 HPF (0-3)
[2025-07-23 14:37] LABS: Bacteria/HPF 1+ HPF (None Seen)
[2025-07-23 14:38] LABS: Urine Culture Reflex No No
[2025-07-23] MEDS ORDERED: Dextrose 50% Abboject 50 ML SYRINGE SLOW IVP PRN (16:51)
[2025-07-23] MEDS ORDERED: Glucagon 1 MG/ML KIT IM PRN (16:51)
[2025-07-23 16:53] VITALS: BMI 59.4
[2025-07-23] MEDS ORDERED: Melatonin 3 MG TAB PO PRN (16:53)
[2025-07-23] MEDS ORDERED: Ondansetron PF 4 MG/2 ML Vial IVP PRN (16:53)
[2025-07-23] MEDS ORDERED: Senokot S 8.6-50 MG TAB PO PRN (16:53)
[2025-07-23] MEDS ORDERED: Electrolyte Replacement Protocol 1 EACH FS SCH (17:00)
[2025-07-23] MEDS: Vancomycin (BATCH) 2.5 GM in Premix 1 BAG IVPB SCH (17:58)
[2025-07-23] MEDS: Famotidine/PF 20 mg/2ml Vial SLOW IVP SCH (18:33)
[2025-07-23] MEDS: diphenhydrAMINE 50 MG/ML VIAL IVP SCH (18:33)
[2025-07-23] MEDS: Linezolid 600 MG in Premix 1 BAG IVPB SCH (20:21)
[2025-07-23] MEDS ORDERED: Vancomycin HCl 1.25 GM in Sodium Chloride 0.9% 250 ML 250 ML IVPB SCH (23:59)
[2025-07-24 06:50] LABS: Hematocrit 46.7 % (42.0-52.0); Hemoglobin 15.7 g/dL (14.0-18.0); Mean Corpuscular Hemoglobin 27.5 pg (27.0-31.0); Mean Corpuscular Volume 81.8 fL (78.0-98.0); Platelet Count 176 10x3/uL (130-400); Red Blood Cell (RBC) Count 5.71 mill/uL (4.70-6.10); White Blood Cell (WBC) Count 19.22 10x3/uL (4.8-10.8)
[2025-07-24 07:44] LABS: ALT (SGPT) 22 U/L (Less than 45); AST (SGOT) 30 U/L (11-34); Albumin 3.2 g/dL (3.1-4.5); Alkaline Phosphatase 37 U/L (40-110); Anion Gap 14 mmol/L (10-20); BUN (Urea Nitrogen) 25 mg/dL (8.9-20.6); Bilirubin, Total 1.8 mg/dL (0.3-1.2); Calc. Creatinine Clearance 127 mL/min (70-130); Calcium 8.3 mg/dL (7.8-10.44); Carbon Dioxide 20 mmol/L (22-29); Chloride 104 mmol/L (98-107); Globulin 3.0 g/dL (2.4-3.5); Glucose 176 mg/dL (70-105); Potassium 3.8 mmol/L (3.5-5.1); Sodium 134 mmol/L (136-145)
[2025-07-24 08:02] LABS: Burr Cells SLIGHT = 2-5 cells HPF (0-1); Platelet Adequacy Comment Platelets Normal; Polychromasia SLIGHT = 2-3 cells HPF (0-2); Smudge Cells 1.0 %
[2025-07-24] MEDS: Enoxaparin 40 MG (0.4 mL) SYRINGE SC SCH ×2 (08:45→20:26)
[2025-07-24] MEDS: Acetaminophen 325 MG TAB PO PRN (11:00)
[2025-07-24] MEDS ORDERED: CEFAZOLIN 1 GM VIAL SLOW IVP SCH (22:00)
[2025-07-25 11:00] LABS: Anion Gap 10 mmol/L (10-20); BUN (Urea Nitrogen) 28 mg/dL (8.9-20.6); Calc. Creatinine Clearance 138 mL/min (70-130); Calcium 8.5 mg/dL (7.8-10.44); Carbon Dioxide 21 mmol/L (22-29); Chloride 105 mmol/L (98-107); Glucose 167 mg/dL (70-105); Potassium 3.4 mmol/L (3.5-5.1); Sodium 133 mmol/L (136-145)
[2025-07-25 11:23] LABS: Hematocrit 41.0 % (42.0-52.0); Hemoglobin 13.7 g/dL (14.0-18.0); Mean Corpuscular Hemoglobin 27.4 pg (27.0-31.0); Mean Corpuscular Volume 82.0 fL (78.0-98.0); Platelet Count 131 10x3/uL (130-400); Red Blood Cell (RBC) Count 5.00 mill/uL (4.70-6.10); White Blood Cell (WBC) Count 10.49 10x3/uL (4.8-10.8)
[2025-07-25 12:52] LABS: Burr Cells SLIGHT = 2-5 cells HPF (0-1); Dohle Bodies SLIGHT; Platelet Adequacy Comment Platelets Normal; Polychromasia SLIGHT = 2-3 cells HPF (0-2); Smudge Cells 5.9 %
[2025-07-25] MEDS: Enoxaparin 60 MG (0.6 mL) SYRINGE SC SCH (19:52)
[2025-07-26 01:53] VITALS: TEMP 97.6
[2025-07-26 04:46] LABS: #Basophils 0.04 10x3/uL (0.0-0.2); #Eosinophils 0.12 10x3/uL (0.0-0.7); #Monocytes 0.48 10x3/uL (0.11-0.59); #Neutrophils 5.94 10x3/uL (1.40-6.50); %Basophils 0.5 % (0.0-1.0); %Eosinophils 1.6 % (0.0-10.0); %Lymphocytes 10.9 % (21.0-51.0); %Monocytes 6.5 % (0.0-10.0); %Neutrophils 80.2 % (42.0-75.0); Hematocrit 44.6 % (42.0-52.0); Hemoglobin 15.1 g/dL (14.0-18.0); Mean Corpuscular Hemoglobin 27.7 pg (27.0-31.0); Mean Corpuscular Volume 81.7 fL (78.0-98.0); Platelet Count 78 10x3/uL (130-400); Red Blood Cell (RBC) Count 5.46 mill/uL (4.70-6.10); White Blood Cell (WBC) Count 7.41 10x3/uL (4.8-10.8)
[2025-07-26 08:02] VITALS: BP 186/109
== END 2025-07-26 11:48 | disposition home or self-care (01) | DRG 872 ==
LOC: ERS 10:35 → T4-A 16:00
PROVIDERS: ADMIT Internal Medicine; ATTEND Internal Medicine
DX: A41.9 Sepsis, unspecified organism (principal); L03.115 Cellulitis of right lower limb; Z68.43 Body mass index [BMI] 50.0-59.9, adult; I12.9 Hypertensive chronic kidney disease with stage 1 through stage 4 chronic kidney disease, or unspecified chronic kidney disease; E11.22 Type 2 diabetes mellitus with diabetic chronic kidney disease; N18.2 Chronic kidney disease, stage 2 (mild); E11.65 Type 2 diabetes mellitus with hyperglycemia; Z71.6 Tobacco abuse counseling; E66.813 Obesity, class 3; Z88.1 Allergy status to other antibiotic agents; F17.210 Nicotine dependence, cigarettes, uncomplicated; Z98.890 Other specified postprocedural states; Z87.19 Personal history of other diseases of the digestive system; Z71.3 Dietary counseling and surveillance
CPT/HCPCS: 36415; 36416; 71045; 80048; 80053; 81001; 83036; 83605; 83880; 84484; 85025; 87040; 87077; 87081; 87149; 87186; 87428; 93005; 96374; 96375; J0690; J1200; J1308; J1650; J2020; J2270; J2543; J3373; J7030